=== PATIENT | male | born 1945 | race Caucasian/White ===

== ENCOUNTER 2017-05-01 09:14 | Outpatient (CLI) | payer MEDICARE | END 2017-05-01 09:15 | disposition critical access hospital (66) | LOC: EMS 09:14 | PROVIDERS: ATTEND Surgery | DX: R53.1 Weakness (principal); R06.00 Dyspnea, unspecified | CPT/HCPCS: A0425; A0429 ==

== ENCOUNTER 2017-05-01 09:21 | Inpatient (IN) | payer MEDICARE ==
[2017-05-01] MEDS ORDERED: IPRATROPIUM/ALBUTEROL 3 ML NEB INH STA (09:33)
[2017-05-01] MEDS ORDERED: SODIUM CHLORIDE 0.9% 1,000 ML IV ONE (09:33)
--- NOTE | 2017-05-01 09:40 | ED Physician Documentation ---
History of Present Illness - Stated complaint Stated Complaint: SOA/WEAK - Chief complaint Chief Complaint: Neuro - History obtained from History obtained from: Patient, EMS - Additonal information Additional information: The patient is a 71-year-old male with a history of COPD, who presents via ambulance complaining of generalized weakness. His weakness has been progressing for the past week. He reports associated thirst and shortness of breath. He reports "little cough," with slight sputum production. He denies fever, chest pain, or abdominal pain. He denies nausea, vomiting, or diarrhea. He reports occasional headache but currently does not have headache. He denies history of similar symptoms in the past. Past medical history is significant for COPD. He does not take any inhaler therapy, and is not on home oxygen. He is 2 weeks status post left hand surgery for Dupuytren's contracture at [facility]. Social history is significant for cigarette smoking. Review of Systems Constitutional: reports: Fatigue. denies: Fever Ears: denies: Tinnitus/ringing Nose: denies: Congestion Throat: denies: Sore throat Cardiac: denies: Chest pain / pressure, Palpitations Respiratory: reports: Dyspnea, Cough (Slight) GI: denies: Abdominal Pain, Nausea, Vomiting, Diarrhea : denies: Dysuria Skin: denies: Rash Musculoskeletal: denies: Neck pain, Extremity pain, Extremity swelling Neurologic: reports: Generalized weakness. 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 - Present Medications Home Medications: Ambulatory Orders Medication Instructions Recorded Confirmed Atenolol 50 mg PO 0800 05/01/17 05/01/17 Didanosine 250 mg PO 0800 05/01/17 05/01/17 Efavirenz [Sustiva] 600 mg PO 0800 05/01/17 05/01/17 Emtricitabine/Tenofov Alafenam 1 tab PO 0800 05/01/17 05/01/17 [Descovy 200-25 mg Tablet] - Allergies Allergies/Adverse Reactions: Allergies Allergy/AdvReac Type Severity Reaction Status Date / Time No Known Drug Allergies Allergy Verified 05/01/17 09:26 PD ED PE NORMAL - Vitals Vital signs reviewed: Yes (Systolic hypertension, and low pulse oximetry on room air.) - General General: Alert and oriented X 3, Well developed/nourished, Other (Nicotine odor. ) - HEENT HEENT: Atraumatic, EOMI, Moist mucous membranes, Pharynx benign - Neck Neck: Supple, no meningeal sign, No adenopathy, No JVD - Cardiac Cardiac: RRR, No murmur - Respiratory Respiratory: Other (Coarse breath sounds bilaterally, with inspiratory and expiratory crackles.) - Abdomen Abdomen: Soft, Non tender - Back Back: No CVA TTP - Derm Derm: No rash - Extremities Extremities: No edema, No calf tenderness / cord, Other (Wound dressing and splint on left hand.) - Neuro Neuro: Alert and oriented X 3, No motor deficit, Other (Decreased sensation fingers left hand.) Results - Vitals Vitals: Vital Signs - 24 hr 05/01/17 05/01/17 05/01/17 09:20 09:48 10:00 Temperature 36.9 C Heart Rate 82 90 88 Respiratory 18 25 H 26 H Rate Blood Pressure 161/85 H 143/88 H O2 Saturation 89 L 91 L 05/01/17 05/01/17 05/01/17 10:40 11:00 11:30 Temperature Heart Rate 88 82 102 H Respiratory 22 24 26 H Rate Blood Pressure 144/86 H 137/76 H 144/81 H O2 Saturation 92 89 L 89 L 05/01/17 11:57 Temperature Heart Rate 94 Respiratory 24 Rate Blood Pressure O2 Saturation Oxygen O2 Source Nasal cannula Oxygen Flow Rate 2 - EKG (time done) 09:35 Rate: Rate (enter#) (97) Rhythm: NSR Bussey: Normal Intervals: Normal NV, Prolonged QT QRS: Normal Computer interpretation: Agree with computer - Labs Labs: Laboratory Tests 05/01/17 05/01/17 05/01/17 09:54 09:54 09:54 WBC 21.2 H RBC 4.81 Hgb 15.5 Hct 45.8 MCV 95.2 H MCH 32.2 H MCHC 33.8 RDW 13.4 Plt Count 525 H MPV 7.1 L Neut # 18.1 H Lymph # 1.8 Dodge # 1.1 H Eos # 0.1 Baso # 0.2 H Absolute Nucleated RBC 0.01 Nucleated RBC % 0.0 Manual Slide Review Indicated WBC Morphology NORMAL APPEARANCE RBC Morph Micro Appear 1+ MACROCYTOSIS D-Dimer Bld Gas Analysis Time Sample Site ABG pH ABG pCO2 ABG pO2 ABG HCO3 ABG Total CO2 ABG O2 Saturation ABG Base Excess Luis Test O2 Delivery Device O2 Liters/Min Sodium 140 Potassium 4.2 Chloride 101 Carbon Dioxide 26 Anion Gap 13.0 BUN 19 Creatinine 0.9 Estimated GFR (MDRD) 83 L Glucose 103 H Lactic Acid Calcium 9.1 Total Bilirubin 0.6 AST 21 ALT 14 Alkaline Phosphatase 43 Troponin I < 0.04 B-Natriuretic Peptide Total Protein 8.2 Albumin 3.8 Globulin 4.4 H Albumin/Globulin Ratio 0.9 L Lipase 35 05/01/17 05/01/17 05/01/17 09:54 09:54 09:54 WBC RBC Hgb Hct MCV MCH MCHC RDW Plt Count MPV Neut # Lymph # Dodge # Eos # Baso # Absolute Nucleated RBC Nucleated RBC % Manual Slide Review WBC Morphology RBC Morph Micro Appear D-Dimer 262.2 H Bld Gas Analysis Time Sample Site ABG pH ABG pCO2 ABG pO2 ABG HCO3 ABG Total CO2 ABG O2 Saturation ABG Base Excess Luis Test O2 Delivery Device O2 Liters/Min Sodium Potassium Chloride Carbon Dioxide Anion Gap BUN Creatinine Estimated GFR (MDRD) Glucose Lactic Acid 1.2 Calcium Total Bilirubin AST ALT Alkaline Phosphatase Troponin I B-Natriuretic Peptide 122 H Total Protein Albumin Globulin Albumin/Globulin Ratio Lipase 05/01/17 11:50 WBC RBC Hgb Hct MCV MCH MCHC RDW Plt Count MPV Neut # Lymph # Dodge # Eos # Baso # Absolute Nucleated RBC Nucleated RBC % Manual Slide Review WBC Morphology RBC Morph Micro Appear D-Dimer Bld Gas Analysis Time 1200 Sample Site RIGHT RADIAL ABG pH 7.39 ABG pCO2 46 H ABG pO2 56 L ABG HCO3 27.2 H ABG Total CO2 28.6 ABG O2 Saturation 90 L ABG Base Excess 1.7 Luis Test POSITIVE O2 Delivery Device NASAL CANNULA O2 Liters/Min 3.00 Sodium Potassium Chloride Carbon Dioxide Anion Gap BUN Creatinine Estimated GFR (MDRD) Glucose Lactic Acid Calcium Total Bilirubin AST ALT Alkaline Phosphatase Troponin I B-Natriuretic Peptide Total Protein Albumin Globulin Albumin/Globulin Ratio Lipase - Rads (name of study) CXR Radiology: Prelim report reviewed, EMP read contemporaneously, See rad report ( Left midlung and bilateral lower lobe opacities; no vascular congestion; small pleural effusions; 10 mm nodular density projected over right upper lung. Recommend chest CT after acute symptoms resolve.) PD MEDICAL DECISION MAKING - ED course Complexity details: reviewed results, re-evaluated patient, considered differential, d/w patient, d/w internal control consultant ED course: The patient's presentation is most consistent with pneumonia. His chest x-ray reveals left mid lung and bilateral lower lobe opacities, consistent with pneumonia. His white blood cell count is 21,000. His presentation does not suggest congestive heart failure. He has no ischemic abnormalities on EKG, and his BNP is normal, as is his troponin. I doubt pulmonary embolus with a d- dimer of 262. His pulse oximetry is low at 89% on room air, and he has only slight improvement after supplemental oxygen at 2 L by nasal cannula. It improves to 91% on 3 L supplemental oxygen. Arterial blood gas on 3 L supplemental oxygen reveals hypoxemia, with a PO2 of 56.1. His pH is 7.39, PCO2 is 45.7, and bicarb is 27.2. Treatment in the emergency department included administration of DuoNeb nebulizer, followed by Xopenex nebulizer. Ceftriaxone 1 g and Zithromax 500 mg were administered IV. Sputum sample was collected by Respiratory Therapist, and sputum Gram Stain, c & s was ordered. I discussed his condition with Dr. Rosa who accepts him for further evaluation and treatment. Departure - Departure Disposition: 66 [facility] DC/Xfer Clinical Impression: Hypoxemia Pneumonia Qualifiers: Pneumonia type: due to unspecified organism Laterality: bilateral Lung location : lower lobe of lung Qualified Code(s): J18.9 - Pneumonia, unspecified organism Condition: Stable Discharge Date/Time: 05/01/17 12:50
[2017-05-01 10:02] LABS: BASOPHILS # (AUTO) 0.2 10^3/uL (0.0-0.1); EOSINOPHILS # (AUTO) 0.1 10^3/uL (0.0-0.7); EOSINOPHILS % (AUTO) 0.4 %; HGB - HEMOGLOBIN 15.5 g/dL (14.0-18.0); LYMPHOCYTES # (AUTO) 1.8 10^3/uL (1.5-3.5); LYMPHOCYTES % (AUTO) 8.5 %; MEAN CORPUSCULAR HEMOGLOBIN 32.2 pg (27.0-31.0); MEAN CORPUSCULAR HGB CONC 33.8 g/dL (32.0-36.0); MEAN CORPUSCULAR VOLUME 95.2 fL (80.0-94.0); MEAN PLATELET VOLUME 7.1 fL (7.4-11.4); MONOCYTES # (AUTO) 1.1 10^3/uL (0.0-1.0); NEUTROPHILS # (AUTO) 18.1 10^3/uL (1.5-6.6); NEUTROPHILS % (AUTO) 85.1 %; PLT - PLATELET COUNT 525 10^3/uL (130-450); RED BLOOD COUNT 4.81 10^6/uL (4.70-6.10); RED CELL DISTRIBUTION WIDTH 13.4 % (12.0-15.0); WHITE BLOOD COUNT 21.2 x10^3/uL (4.8-10.8)
[2017-05-01 10:14] LABS: ALBUMIN 3.8 g/dL (3.2-5.5); ALBUMIN/GLOBULIN RATIO 0.9 (1.0-2.2); BILIRUBIN,TOTAL 0.6 mg/dL (0.2-1.0); CALCIUM 9.1 mg/dL (8.5-10.3); CREATININE 0.9 mg/dL (0.6-1.2); TOTAL PROTEIN 8.2 g/dL (6.7-8.2)
--- NOTE | 2017-05-01 10:46 | XRAY Report ---
EXAM: CHEST RADIOGRAPHY EXAM DATE: 05/01/2017 10:28 AM. CLINICAL HISTORY: Dyspnea; coarse breath sounds. COMPARISON: None. TECHNIQUE: 2 views. FINDINGS: Lungs/Pleura: Left mid and bilateral lower lung opacities. Hyperinflation. Small pleural effusions. N odular 10 mm density projects over the right upper lung along the right anterior second rib. Mediastinum: Heart size is normal. Aorta is tortuous. Other: Degenerative changes of the thoracic spine. Dextroscoliosis of the thoracic spine and both saji ulders. IMPRESSION: 1. Left midlung and bilateral lower lung opacities possibly areas of consolidation. 2. No vascular congestion. 3. Small pleural effusions. 4. 10 mm nodular density projected over the right upper lung, confluence of rib and vessel versus und erlying parenchymal nodule. Once patient's acute clinical symptoms have improved, follow chest CT rec ommended. CHERYL Referring Provider Line: [phone] SITE ID: [id number]
[2017-05-01] MEDS ORDERED: cefTRIAXone 1 GM in SODIUM CHLORIDE 0.9% MINIBAG 100 ML IV STA (11:12)
[2017-05-01] MEDS ORDERED: AZITHROMYCIN INJ 500 MG in SODIUM CHLORIDE 0.9% 250 ML IV STA (11:12)
[2017-05-01] MEDS ORDERED: LEVALBUTEROL 1.25 MG/3 ML NEB INH STA (11:34)
[2017-05-01] MEDS ORDERED: SODIUM CHLORIDE FLUSH 0.9% 10 ML SYRINGE IVP PRN (11:59)
[2017-05-01 12:04] LABS: ABG HCO3 27.2 mmol/L (22.0-26.0); ABG PCO2 46 mmHg (34-45); ABG PH 7.39 (7.35-7.45); ABG PO2 56 mmHg (80-100); ABG TCO2 28.6 MMOL/L (21.0-29.0)
[2017-05-01 12:05] LABS: ABG BASE EXCESS 1.7 mmol/L (-2.0-3.0); ABG OXYGEN SATURATION 90 % (94-98); ALLEN TEST POSITIVE
--- NOTE | 2017-05-01 12:15 | HISTORY & PHYSICAL EXAMINATION ---
Chief Complaint - Chief Complaint Chief Complaint: shortness of breath, cough History of Present Illness - Admitted From Admitted From:: ED - History Obtained From Records Reviewed: yes History obtained from: chart review, patient Exam Limitations: none - History of Present Illness HPI Comment/Other: Dre Estrada an ill appearing yellow mustached 71 year old white male with a past medical history of COPD, s/p Dupuytren's contracture repair at ~2 weeks ago, HIV, tobacco dependence, alcohol dependence-in remission, BPH, and PTSD related to [place] . About one week ago the patient noticed that he could no longer walk his usual distance to the store in his neighborhood, followed by profound weakness and anorexia. Once in the ED he was noted to be hypoxic and required oxygen, have an elevated WBC count of 21.2, he was checked for a PE which was negative per imaging and was negative for cardiac etiologies. The patient admits to a mild cough with small amounts of sputum production, but denies fever, chills, nausea, vomiting or diarrhea. He continues to smoke greater than 1 ppd, but has recently cut back to just 3/4 ppd. He denies home oxygen use, inhalers, or having a soil chemist. He will be admitted to inpatient for treatment of bilateral pneumonia, management of COPD and encouragement to consider smoking cessation. 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 - Past Surgical History General: reports: Appendectomy, Other (inguinal hernia repair-right) Derm: reports: Skin cancer surgery Other past surgical history: 2 weeks status post left hand surgery for Dupuytren 's contracture. - Family & Social History Family History: Mother: (Sister of pancreatic CA.), Alzheimer's Disease (Mother of Alzheimers), Father: , Cancer (father of pancreatic/liver CA.), Sister: , Brother: Family History Comment/Other: He remains with 3 living sisters who are thought to be alive and well, although are not in touch with him. Living arrangement: At home Living Situation: Alone Social History Notes: Patient was in the [place] war and suffers from PTSD and consequently abused alcohol for much of his adult life. He continues to use tobacco, but denies illicit drug use. He had a life long kerr partner who ~6 years ago. He has no biological children and contracted HIV 35- 40 years ago and this has been managed well. 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 [place] He no longer has pets and his cat . He wishes for all resuscitation measures with the exception of intubation. So his code status is DNI. - Substance History Use: Uses substance without health or social issues: Tobacco Use Issues: Anxiety Disorder Abuse: Recurrent use of substance despite neg consequences: NONE Dependence: Experiences withdrawal or developed tolerances: Tobacco Dependence Issues: Anxiety Disorder Tobacco Details: Cigarettes (Has smoked since age 29 and presently smokes greater than 1 ppd.) - POLST Patient has POLST: No POLST Status: Limited Interventions (No intubation) Meds/Allgy - Home Medications Home Medications: Ambulatory Orders Medication Instructions Recorded Confirmed Atenolol 50 mg PO 0800 05/01/17 05/01/17 Didanosine 250 mg PO 0800 05/01/17 05/01/17 Efavirenz [Sustiva] 600 mg PO 0800 05/01/17 05/01/17 Emtricitabine/Tenofov Alafenam 1 tab PO 0800 05/01/17 05/01/17 [Descovy 200-25 mg Tablet] - Allergies Allergies/Adverse Reactions: Allergies Allergy/AdvReac Type Severity Reaction Status Date / Time No Known Drug Allergies Allergy Verified 05/01/17 09:26 Review of Systems - Constitutional Constitutional: reports: Fatigue, Weakness - Eyes Eyes: reports: Vision loss - Ears, Nose & Throat Ears, Nose & Throat: reports: Hearing loss, Nasal congestion, Mouth lesions ( thrush appearing, white film over tongue.), Dental decay - Cardiovascular Cariovascular: reports: Decr. exercise tolerance - Respiratory Respiratory: reports: Cough, Sputum production, Wheezing, SOB with exertion - Gastrointestinal Gastrointestinal: reports: Constipation, Poor appetite - Genitourinary Genitourinary: reports: Frequency, Nocturia - Musculoskeletal Musculoskeletal: reports: Limited range of motion, Muscle weakness, Joint pain - Integumentary Integumentary: reports: Dryness - Neurological Neurological: reports: General weakness - All Other Systems All Other Systems: reports: Reviewed and negative Exam - Vital Signs Reviewed Vital Signs: Yes Vital Signs: Vital Signs x48h Temp Pulse Resp BP Pulse Ox 05/01/17 11:57 94 24 05/01/17 09:48 90 25 H 05/01/17 09:20 36.9 C 82 18 161/85 H 89 L - Physical Exam General Appearance: positive: Alert, Moderate distress, Anxious Eyes Bilateral: positive: Normal inspection ENT: positive: ENT inspection nml, Pharynx nml, Dry mucous membranes Neck: positive: Nml inspection, Thyroid nml, No JVD, Trachea midline Respiratory: positive: Chest non-tender, Wheezes, Rhonchi Peripheral Pulses: positive: 1+ Abdomen: positive: Non-tender, Nml bowel sounds Back: positive: Nml inspection Skin: positive: No rash, Warm, Dry Extremities: positive: Non-tender, Full ROM, Nml appearance, No pedal edema Neurologic/Psychiatric: positive: Oriented x3, CN's nml (2-12), Motor nml, Sensation nml, Depressed mood/affect Reflexes: Bicep (R): 2+, Bicep (L): 1+ Conclusion/Plan - Problem List (1) Bilateral pneumonia Conclusion/Plan: A PE CT was completed and the patient is noted to have bilateral PNA. Plan: Obtain sputum sample and treat with IV antibiotics. (2) COPD (chronic obstructive pulmonary disease) Conclusion/Plan: Patient has been a smoker since age 29 and during his exam he is noted to have nicotine stained facial hair, and nicotine stained fingers. Plan: Offer nicotine patch, start nebs, antibiotics and continue oxygen. Qualifiers: COPD type: COPD with acute lower respiratory infection Qualified Code(s): J44.0 - Chronic obstructive pulmonary disease with acute lower respiratory infection (3) HIV (human immunodeficiency virus infection) Conclusion/Plan: Patient admits to infection for the past 35-40 years and this is well managed and is on sustiva, didanosine and emtricitabine/tenofovir. Patient states that his next appointment is in July. Plan: Continue home medications, patient supplied. (4) Tobacco dependence Conclusion/Plan: Patient has been a smoker since age 29 and during his exam he is noted to have nicotine stained facial hair, and nicotine stained fingers. Plan: Offer nicotine patch, start nebs, antibiotics and continue oxygen. - Lab Results Lab results reviewed: Yes Fish Bones: 05/01/17 09:54 05/01/17 09:54 - Diagnostic Imaging Results Diagnostic Imaging Results: positive: Prelim report reviewed, Final report reviewed - EKG Results EKG Interpreted Independently: Yes Core Measures - Anticipated LOS I expect patient to be DC'd or transferred within 96 hours.: Yes - DVT/VTE - Prophylaxis VTE/DVT Device ordered at admit?: Yes VTE/DVT Prophylaxis med ordered at admit?: Yes - Stroke - Rehab Assessment Rehab services assessment to be ordered?: Yes - AMI - Statin at Admit Aspirin Prescribed on Admit: Yes
[2017-05-01] MEDS: SODIUM CHLORIDE 0.9% 1,000 ML IV SCH ×2 (13:12→16:48)
[2017-05-01] MEDS: SODIUM CHLORIDE FLUSH 0.9% 10 ML SYRINGE IVP SCH ×2 (13:13→23:45)
[2017-05-01] MEDS ORDERED: IPRATROPIUM/ALBUTEROL 3 ML NEB INH PRN (15:39)
[2017-05-01] MEDS: IPRATROPIUM/ALBUTEROL 3 ML NEB INH SCH ×2 (16:07→20:00)
[2017-05-01] MEDS: methylPREDNISolone SUCCINATE 40 MG/ML VIAL IVP SCH ×2 (17:08→22:48)
[2017-05-01] MEDS: guaiFENesin 600 MG TABLET PO SCH (17:08)
[2017-05-01] MEDS: PIPERACILLIN/TAZOBACTAM 3.375 GM in SODIUM CHLORIDE 0.9% MINIBAG 100 ML IV SCH (22:48)
[2017-05-02] MEDS: PIPERACILLIN/TAZOBACTAM 3.375 GM in SODIUM CHLORIDE 0.9% MINIBAG 100 ML IV SCH ×2 (02:47→08:29)
[2017-05-02] MEDS: SODIUM CHLORIDE 0.9% 1,000 ML IV SCH ×2 (03:05→18:44)
[2017-05-02] MEDS: SODIUM CHLORIDE FLUSH 0.9% 10 ML SYRINGE IVP SCH ×2 (06:01→18:14)
[2017-05-02] MEDS: methylPREDNISolone SUCCINATE 40 MG/ML VIAL IVP SCH ×3 (06:01→21:42)
[2017-05-02 06:05] LABS: BASOPHILS # (AUTO) 0.1 10^3/uL (0.0-0.1); BASOPHILS % (AUTO) 0.4 %; HGB - HEMOGLOBIN 13.4 g/dL (14.0-18.0); LYMPHOCYTES # (AUTO) 1.3 10^3/uL (1.5-3.5); LYMPHOCYTES % (AUTO) 5.6 %; MEAN CORPUSCULAR HEMOGLOBIN 31.5 pg (27.0-31.0); MEAN CORPUSCULAR HGB CONC 32.7 g/dL (32.0-36.0); MEAN CORPUSCULAR VOLUME 96.6 fL (80.0-94.0); MEAN PLATELET VOLUME 6.9 fL (7.4-11.4); MONOCYTES # (AUTO) 0.5 10^3/uL (0.0-1.0); MONOCYTES % (AUTO) 2.2 %; NEUTROPHILS # (AUTO) 21.1 10^3/uL (1.5-6.6); NEUTROPHILS % (AUTO) 91.8 %; PLT - PLATELET COUNT 501 10^3/uL (130-450); RED BLOOD COUNT 4.23 10^6/uL (4.70-6.10); RED CELL DISTRIBUTION WIDTH 13.9 % (12.0-15.0)
[2017-05-02 06:19] LABS: ALBUMIN 3.1 g/dL (3.2-5.5); ALBUMIN/GLOBULIN RATIO 0.8 (1.0-2.2); BILIRUBIN,TOTAL 0.6 mg/dL (0.2-1.0); CALCIUM 8.2 mg/dL (8.5-10.3); CREATININE 0.9 mg/dL (0.6-1.2); MAGNESIUM 2.1 mg/dL (1.7-2.8); TOTAL PROTEIN 7.2 g/dL (6.7-8.2)
[2017-05-02 06:29] LABS: PLATELET ESTIMATE, MANUAL INCREASED (>450,000) (NORMAL); PLATELET MORPHOLOGY NORMAL APPEARANCE (NORMAL); RBC MORPHOLOGY (MULTIPLE) NORMAL APPEARANCE (NORMAL)
[2017-05-02] MEDS: IPRATROPIUM/ALBUTEROL 3 ML NEB INH SCH ×4 (07:39→20:01)
[2017-05-02] MEDS: DIDANOSINE PO SCH (08:29)
[2017-05-02] MEDS: Emtricitabine/Tenofov Alafenam [Descovy 200-25 Mg Tablet] 1 TAB PO SCH (08:29)
[2017-05-02] MEDS: EFAVIRENZ 600 MG PO SCH (08:29)
[2017-05-02] MEDS: ATENOLOL 25 MG TABLET PO SCH (08:30)
[2017-05-02] MEDS: NYSTATIN 500000 UNITS/5 ML UDC PO SCH ×4 (08:30→21:42)
[2017-05-02] MEDS: guaiFENesin 600 MG TABLET PO SCH ×2 (08:30→21:42)
[2017-05-02] MEDS: POLYETHYLENE GLYCOL 3350 17 GM PACKET PO SCH (09:57)
--- NOTE | 2017-05-02 10:26 | PROVIDER PROGRESS NOTE ---
Subjective - Prog Note Date Prog Note Date: 05/02/17 Prog Note Time: 10:15 - Subjective Pt reports feeling: Improved Subjective: Pt is breathing easier, says he still gets winded with ambulation. Slept well, also says his appetite is much improved. Denies fevers or chills. Current Medications - Current Medications Current Medications: duoneb, tenormin, guaifenessin, nystatin, didanosine, sustiva, Descovy, Piperacillin/tazobactam, miralax,sodium chloride Objective - Vital Signs/Intake & Output Reviewed Vital Signs: Yes Vital Signs: Vital Signs x48h Temp Pulse Pulse Resp BP Pulse Ox 05/02/17 07:46 36.6 C 79 18 114/67 95 05/02/17 07:39 75 24 05/02/17 05:00 36.7 C 80 16 133/68 H 94 Intake & Output: Intake & Output 04/29/17 04/30/17 05/01/17 05/02/17 23:59 23:59 23:59 23:59 Intake Total 2122.5 1400 Output Total 100 300 Balance 2022.5 1100 - Objective General Appearance: positive: No acute distress, Alert, Mild distress Eyes Bilateral: positive: Normal inspection, PERRL, EOMI, No lid inflammation, Conjunctivae nml, No scleral icterus ENT: positive: ENT inspection nml, Pharynx nml, No signs of dehydration Neck: positive: Nml inspection, Thyroid nml, No JVD, Trachea midline. negative : Thyromegaly Respiratory: positive: Chest non-tender, No respiratory distress, Breath sounds nml Cardiovascular: positive: Regular rate & rhythm, No murmur, No gallop, Irregularly irregular, Extrasystoles, Tachycardia Abdomen: positive: Non-tender, No organomegaly, Nml bowel sounds, No distention. negative: Guarding, Rebound Back: positive: Nml inspection. negative: CVA tenderness (R), CVA tenderness (L ) Skin: positive: Color nml, No rash, Dry. negative: Cyanosis Extremities: positive: Non-tender, Full ROM, Nml appearance, No pedal edema Neurologic/Psychiatric: positive: Oriented x3, CN's nml (2-12), Motor nml, Sensation nml, Mood/affect nml - Lab Results Fish Bones: 05/02/17 05:52 05/02/17 05:52 Other Labs: Lab Results x24hrs 05/02/17 05/02/17 Range/Units 05:52 05:52 WBC 23.0 H (4.8-10.8) x10^3/uL RBC 4.23 L (4.70-6.10) 10^6/uL Hgb 13.4 L (14.0-18.0) g/dL Hct 40.9 L (42.0-52.0) % MCV 96.6 H (80.0-94.0) fL MCH 31.5 H (27.0-31.0) pg MCHC 32.7 (32.0-36.0) g/dL RDW 13.9 (12.0-15.0) % Plt Count 501 H (130-450) 10^3/uL MPV 6.9 L (7.4-11.4) fL Neut # 21.1 H (1.5-6.6) 10^3/uL Lymph # 1.3 L (1.5-3.5) 10^3/uL [place] # 0.5 (0.0-1.0) 10^3/uL Eos # 0.0 (0.0-0.7) 10^3/uL Baso # 0.1 (0.0-0.1) 10^3/uL Absolute Nucleated RBC 0.00 x10^3/uL Nucleated RBC % 0.0 /100WBC Manual Slide Review Indicated Platelet Estimate INCREASED (>450,000) (NORMAL) Platelet Morphology NORMAL APPEARANCE (NORMAL) RBC Morph Micro Appear NORMAL APPEARANCE (NORMAL) Sodium 141 (135-145) mmol/L Potassium 4.6 (3.5-5.0) mmol/L Chloride 106 (101-111) mmol/L Carbon Dioxide 27 (21-32) mmol/L Anion Gap 8.0 (6-13) BUN 16 (6-20) mg/dL Creatinine 0.9 (0.6-1.2) mg/dL Estimated GFR (MDRD) 83 L (>89) Glucose 147 H (70-100) mg/dL Calcium 8.2 L (8.5-10.3) mg/dL Magnesium 2.1 (1.7-2.8) mg/dL Total Bilirubin 0.6 (0.2-1.0) mg/dL AST 17 (10-42) IU/L ALT 12 (10-60) IU/L Alkaline Phosphatase 36 L (42-121) IU/L Total Protein 7.2 (6.7-8.2) g/dL Albumin 3.1 L (3.2-5.5) g/dL Globulin 4.1 (2.1-4.2) g/dL Albumin/Globulin Ratio 0.8 L (1.0-2.2) - Diagnostic Imaging Diagnostic Imaging Results: positive: Final report reviewed Diagnostic Imaging Comments: EXAM: CHEST RADIOGRAPHY EXAM DATE: 05/01/2017 10:28 AM. CLINICAL HISTORY: Dyspnea; coarse breath sounds. COMPARISON: None. TECHNIQUE: 2 views. FINDINGS: Lungs/Pleura: Left mid and bilateral lower lung opacities. Hyperinflation. Small pleural effusions. Nodular 10 mm density projects over the right upper lung along the right anterior second rib. Mediastinum: Heart size is normal. Aorta is tortuous. Other: Degenerative changes of the thoracic spine. Dextroscoliosis of the thoracic spine and both shoulders. IMPRESSION: 1. Left midlung and bilateral lower lung opacities possibly areas of consolidation. 2. No vascular congestion. 3. Small pleural effusions. 4. 10 mm nodular density projected over the right upper lung, confluence of rib and vessel versus underlying parenchymal nodule. Once patient's acute clinical symptoms have improved, follow chest CT recommended. Assessment/Plan - Problem List (1) Bilateral pneumonia Impression: The patient was found to have bilateral pneumonia on admission, with also a 10 cm nodular density. Pt has had recurrent pneumonias. Will get CT angiogram, continue neb treatments, antibiotics, supplemental oxygen, bronchodilators. (2) COPD (chronic obstructive pulmonary disease) Impression: We will continue supplemental oxygen, duonebs, and will treat underlying pneumonia Qualifiers: COPD type: COPD with acute lower respiratory infection Qualified Code(s): J44.0 - Chronic obstructive pulmonary disease with acute lower respiratory infection (3) HIV (human immunodeficiency virus infection) Impression: Patient admits to infection for the past 35-40 years and this is well managed and is on sustiva, didanosine and emtricitabine/tenofovir. Patient states that his next appointment is in July. (4) Pneumonia Qualifiers: Pneumonia type: due to unspecified organism Laterality: bilateral Lung location: lower lobe of lung Qualified Code(s): J18.9 - Pneumonia, unspecified organism (5) Tobacco dependence Impression: Patient has been a smoker since age 29 and during his exam he is noted to have nicotine stained facial hair, and nicotine stained fingers. Plan: Offer nicotine patch, start nebs, antibiotics and continue oxygen.
[2017-05-02] MEDS ORDERED: IOPAMIDOL-300 100 ML VIAL ONE (10:57)
[2017-05-02] MEDS ORDERED: IOPAMIDOL-300 100 ML VIAL IVP ONE (11:51)
[2017-05-02] MEDS ORDERED: cefTRIAXone 2 GM in SODIUM CHLORIDE 0.9% MINIBAG 100 ML IV SCH (12:00)
--- NOTE | 2017-05-02 12:37 | CT Report ---
CT ANGIOGRAM CHEST: 05/02/2017 CLINICAL INDICATION: Shortness of breath, recent surgery, question pulmonary embolus. TECHNIQUE: Axial CT images of the chest were obtained with 80 mL Isovue 300 intravenously, according to pulmonary embolus protocol. Sagittal and coronal 3-D reconstructions were performed. FINDINGS: The heart and great vessels appear unremarkable. There is no evidence of pulmonary embolus. Mild right hilar adenopathy is present, and there is right greater than left basilar consolidation. No effusion or pneumothorax is present. Osseous structures demonstrate degenerative changes. Limited evaluation of upper abdominal structures demonstrates normal adrenal glands. IMPRESSION: RIGHT GREATER THAN LEFT BASILAR INFILTRATES. NO EVIDENCE OF PULMONARY EMBOLUS. In accordance with CT protocol optimization, one or more of the following dose reduction techniques were utilized for this exam: automated exposure control, adjustment of mA and/or KV based on patient size, or use of iterative reconstructive technique. TD: 05/02/2017 12:36
[2017-05-02] MEDS ORDERED: AZITHROMYCIN INJ 500 MG in SODIUM CHLORIDE 0.9% 250 ML IV SCH (13:00)
[2017-05-03] MEDS: SODIUM CHLORIDE FLUSH 0.9% 10 ML SYRINGE IVP SCH ×3 (01:25→16:21)
[2017-05-03] MEDS ORDERED: PIPERACILLIN/TAZOBACTAM 3.375 GM in SODIUM CHLORIDE 0.9% MINIBAG 100 ML IV SCH (05:00)
[2017-05-03 05:21] LABS: BASOPHILS # (AUTO) 0.2 10^3/uL (0.0-0.1); BASOPHILS % (AUTO) 0.9 %; HGB - HEMOGLOBIN 11.9 g/dL (14.0-18.0); LYMPHOCYTES # (AUTO) 1.4 10^3/uL (1.5-3.5); LYMPHOCYTES % (AUTO) 6.3 %; MEAN CORPUSCULAR HEMOGLOBIN 31.5 pg (27.0-31.0); MEAN CORPUSCULAR VOLUME 98.4 fL (80.0-94.0); MEAN PLATELET VOLUME 7.3 fL (7.4-11.4); MONOCYTES # (AUTO) 0.9 10^3/uL (0.0-1.0); MONOCYTES % (AUTO) 3.8 %; NEUTROPHILS # (AUTO) 20.2 10^3/uL (1.5-6.6); PLT - PLATELET COUNT 472 10^3/uL (130-450); RED BLOOD COUNT 3.78 10^6/uL (4.70-6.10); RED CELL DISTRIBUTION WIDTH 13.8 % (12.0-15.0); WHITE BLOOD COUNT 22.7 x10^3/uL (4.8-10.8)
[2017-05-03 05:30] LABS: ALBUMIN 2.8 g/dL (3.2-5.5); ALBUMIN/GLOBULIN RATIO 0.8 (1.0-2.2); BILIRUBIN,TOTAL 0.2 mg/dL (0.2-1.0); CALCIUM 8.3 mg/dL (8.5-10.3); CREATININE 0.8 mg/dL (0.6-1.2); MAGNESIUM 2.3 mg/dL (1.7-2.8); TOTAL PROTEIN 6.5 g/dL (6.7-8.2)
[2017-05-03] MEDS: methylPREDNISolone SUCCINATE 40 MG/ML VIAL IVP SCH ×3 (05:51→22:10)
[2017-05-03] MEDS: SODIUM CHLORIDE 0.9% 1,000 ML IV SCH ×2 (05:51→14:25)
[2017-05-03] MEDS: levoFLOXacin 750 MG/150 ML 750 MG/150 ML BAG IV SCH (06:47)
--- NOTE | 2017-05-03 06:48 | PROVIDER PROGRESS NOTE ---
Subjective - Prog Note Date Prog Note Date: 05/03/17 Prog Note Time: 06:46 - Subjective Pt reports feeling: Improved Subjective: he's improved but still really weak. at home he could barely get out of a chair to get to kitchen or bathroom. he's not that weak anymore but getting up is a considerable effort with rajan still present. he's on O2 here but doesn't use it at home. eating ok. he would like a stool softener to go home on. He was suppose to have had his stiches removed from his hand surgery last week but never got in. Can we remove them? no new pain, redness or swelling. Just time to get them out. Current Medications - Current Medications Current Medications: Active Medications Albuterol/Ipratropium (Duoneb) 3 ml INH Q4HR PRN PRN Reason: Wheezing Albuterol/Ipratropium (Duoneb) 3 ml INH RTQID [facility] Last Admin: 05/02/17 20:01 Dose: 3 ml Atenolol (Tenormin) 50 mg PO 0800 [facility] Last Admin: 05/02/17 08:30 Dose: 50 mg Guaifenesin (Mucinex) 600 mg PO BID [facility] Last Admin: 05/02/17 21:42 Dose: 600 mg Sodium Chloride (Normal Saline 0.9%) 1,000 mls @ 100 mls/hr IV .Q10H [facility] Last Admin: 05/03/17 05:51 Dose: 100 mls/hr Levofloxacin (Levaquin 750 Mg/150 Ml) 750 mg in 150 mls @ 100 mls/hr IV Q24H [facility] Piperacillin Sod/Tazobactam (Sod 3.375 gm/ Sodium Chloride) 100 mls @ 200 mls/ hr IV Q6H [facility] Last Admin: 05/03/17 05:50 Dose: 200 mls/hr Methylprednisolone (Solu-Medrol (40mg Vial)) 40 mg IVP TID [facility] Last Admin: 05/03/17 05:51 Dose: 40 mg Nystatin (Mycostatin) 5 ml PO QID [facility] Last Admin: 05/02/17 21:42 Dose: 5 ml Didanosine [ (Didanosine] 250 Mg) 1 each PO 0800 [facility] Last Admin: 05/02/17 08:29 Dose: 1 each Efavirenz [Sustiva] (600 Mg) 1 each PO 0800 [facility] Last Admin: 05/02/17 08:29 Dose: 1 each Emtricitabine/Tenofov Alafenam [ Descovy 200-25 Mg Tablet] 1 Tab 1 each PO 0800 [facility] Last Admin: 05/02/17 08:29 Dose: 1 each Polyethylene Glycol (Miralax) 17 gm PO DAILY [facility] Last Admin: 05/02/17 09:57 Dose: Not Given Sodium Chloride (Normal Saline Flush 0.9%) 10 ml IVP PRN PRN PRN Reason: NEEDED PER PROVIDER ORDERS Sodium Chloride (Normal Saline Flush 0.9%) 10 ml IVP 0100,0900,1700 [facility] Last Admin: 05/03/17 01:25 Dose: Not Given Atenolol 50 mg PO 0800 05/01/17 Didanosine 250 mg PO 0800 05/01/17 Efavirenz [Sustiva] 600 mg PO 0800 05/01/17 Emtricitabine/Tenofov Alafenam [Descovy 200-25 mg Tablet] 1 tab PO 0800 Objective - Vital Signs/Intake & Output Reviewed Vital Signs: Yes Vital Signs: Vital Signs x48h Temp Pulse Resp BP Pulse Ox 05/03/17 04:23 36.8 C 86 16 108/62 94 05/03/17 00:06 36.6 C 84 16 118/64 95 Intake & Output: Intake & Output 04/30/17 05/01/17 05/02/17 05/03/17 23:59 23:59 23:59 23:59 Intake Total 2122.5 3460.000 1100 Output Total 100 1075 550 Balance 2022.5 2385.000 550 - Objective General Appearance: positive: No acute distress, Alert Eyes Bilateral: positive: PERRL ENT: positive: Other (nasal tone of voice, still congested) Neck: positive: No JVD, Lymphadenopathy (L) (shotty). negative: Lymphadenopathy (R) (shotty), Stiff neck, Carotid bruit Respiratory: positive: Chest non-tender, No respiratory distress (comfortable taking to me in full sentences and no use of accessory muscles.), Wheezes, Rhonchi, Other (laughs and wheezes still). negative: Rales Cardiovascular: positive: Regular rate & rhythm, Systolic murmur. negative: Gallop/S4, Friction rub Abdomen: positive: Non-tender, No organomegaly, Nml bowel sounds, No distention Skin: positive: Warm, Dry Extremities: positive: No pedal edema Neurologic/Psychiatric: positive: Oriented x3, CN's nml (2-12), Motor nml, Weakness - Lab Results Fish Bones: 05/03/17 05:05 05/03/17 05:05 Other Labs: Lab Results x24hrs 05/03/17 05/03/17 Range/Units 05:05 05:05 WBC 22.7 H (4.8-10.8) x10^3/uL RBC 3.78 L (4.70-6.10) 10^6/uL Hgb 11.9 L (14.0-18.0) g/dL Hct 37.2 L (42.0-52.0) % MCV 98.4 H (80.0-94.0) fL MCH 31.5 H (27.0-31.0) pg MCHC 32.0 (32.0-36.0) g/dL RDW 13.8 (12.0-15.0) % Plt Count 472 H (130-450) 10^3/uL MPV 7.3 L (7.4-11.4) fL Manual Slide Review Indicated Sodium 141 (135-145) mmol/L Potassium 4.5 (3.5-5.0) mmol/L Chloride 110 (101-111) mmol/L Carbon Dioxide 27 (21-32) mmol/L Anion Gap 4.0 L (6-13) BUN 20 (6-20) mg/dL Creatinine 0.8 (0.6-1.2) mg/dL Estimated GFR (MDRD) 95 (>89) Glucose 136 H (70-100) mg/dL Calcium 8.3 L (8.5-10.3) mg/dL Magnesium 2.3 (1.7-2.8) mg/dL Total Bilirubin 0.2 (0.2-1.0) mg/dL AST 18 (10-42) IU/L ALT 14 (10-60) IU/L Alkaline Phosphatase 32 L (42-121) IU/L Total Protein 6.5 L (6.7-8.2) g/dL Albumin 2.8 L (3.2-5.5) g/dL Globulin 3.7 (2.1-4.2) g/dL Albumin/Globulin Ratio 0.8 L (1.0-2.2) Assessment/Plan - Problem List (1) Bilateral pneumonia Impression: The patient was found to have bilateral pneumonia on admission, with also a 10 cm nodular density. Pt has had recurrent pneumonias. CT angiogram does not show PE and he has left > right consolidation on lungs. Continue neb treatments , antibiotics, supplemental oxygen, bronchodilators. His sputum culture grew out GNR and he was changed from levaquin to rocephin and azithromycin yesterday. I have changed him back to levaquin and added zosyn. (2) COPD (chronic obstructive pulmonary disease) Impression: We will continue supplemental oxygen, duonebs, and will treat underlying pneumonia Qualifiers: COPD type: COPD with acute lower respiratory infection Qualified Code(s): J44.0 - Chronic obstructive pulmonary disease with acute lower respiratory infection (3) HIV (human immunodeficiency virus infection) Impression: Patient admits to infection for the past 35-40 years and this is well managed and is on sustiva, didanosine and emtricitabine/tenofovir. Patient states that his next appointment is in July. (4) Pneumonia Qualifiers: Pneumonia type: due to unspecified organism Laterality: bilateral Lung location: lower lobe of lung Qualified Code(s): J18.9 - Pneumonia, unspecified organism growing out GNR. ID and sensitivity pending. WBC still high at 21 to 23K without much improvement still on O2. Plan on another 2 days or so before considering dc. He wants to return to home only. He may need to go home on O2. Will have PT eval and tx today. (5) Tobacco dependence Impression: Patient has been a smoker since age 29 and during his exam he is noted to have nicotine stained facial hair, and nicotine stained fingers. Plan: Offer nicotine patch, start nebs, antibiotics and continue oxygen. (6) Constipation I'll make sure he has colace at dc. start some today.
[2017-05-03] MEDS: IPRATROPIUM/ALBUTEROL 3 ML NEB INH SCH ×4 (07:12→19:50)
[2017-05-03 07:39] LABS: PLATELET ESTIMATE, MANUAL INCREASED (>450,000) (NORMAL); PLATELET MORPHOLOGY NORMAL APPEARANCE (NORMAL); RBC MORPHOLOGY (MULTIPLE) NORMAL APPEARANCE (NORMAL)
[2017-05-03] MEDS: ATENOLOL 25 MG TABLET PO SCH (09:06)
[2017-05-03] MEDS: NYSTATIN 500000 UNITS/5 ML UDC PO SCH ×4 (09:06→20:26)
[2017-05-03] MEDS: guaiFENesin 600 MG TABLET PO SCH ×2 (09:07→20:26)
[2017-05-03] MEDS: DOCUSATE SODIUM 100 MG CAPSULE PO SCH (09:07)
[2017-05-03] MEDS: DIDANOSINE PO SCH (09:09)
[2017-05-03] MEDS: EFAVIRENZ 600 MG PO SCH (09:09)
[2017-05-03] MEDS: Emtricitabine/Tenofov Alafenam [Descovy 200-25 Mg Tablet] 1 TAB PO SCH (09:09)
[2017-05-03] MEDS: POLYETHYLENE GLYCOL 3350 17 GM PACKET PO SCH (09:10)
[2017-05-03] MEDS: PIPERACILLIN/TAZOBACTAM 4.5 GM in SODIUM CHLORIDE 0.9% MINIBAG 100 ML IV SCH ×3 (12:16→23:55)
[2017-05-04] MEDS: SODIUM CHLORIDE FLUSH 0.9% 10 ML SYRINGE IVP SCH ×3 (00:58→16:14)
[2017-05-04] MEDS: PIPERACILLIN/TAZOBACTAM 4.5 GM in SODIUM CHLORIDE 0.9% MINIBAG 100 ML IV SCH (05:31)
[2017-05-04] MEDS: methylPREDNISolone SUCCINATE 40 MG/ML VIAL IVP SCH (06:13)
[2017-05-04] MEDS: levoFLOXacin 750 MG/150 ML 750 MG/150 ML BAG IV SCH (06:13)
[2017-05-04 06:19] LABS: BASOPHILS # (AUTO) 0.1 10^3/uL (0.0-0.1); BASOPHILS % (AUTO) 0.5 %; HGB - HEMOGLOBIN 11.9 g/dL (14.0-18.0); LYMPHOCYTES # (AUTO) 1.7 10^3/uL (1.5-3.5); LYMPHOCYTES % (AUTO) 10.7 %; MEAN CORPUSCULAR HEMOGLOBIN 32.3 pg (27.0-31.0); MEAN CORPUSCULAR HGB CONC 33.3 g/dL (32.0-36.0); MEAN PLATELET VOLUME 7.2 fL (7.4-11.4); MONOCYTES # (AUTO) 0.9 10^3/uL (0.0-1.0); MONOCYTES % (AUTO) 5.7 %; NEUTROPHILS # (AUTO) 13.6 10^3/uL (1.5-6.6); NEUTROPHILS % (AUTO) 83.1 %; PLT - PLATELET COUNT 479 10^3/uL (130-450); RED BLOOD COUNT 3.69 10^6/uL (4.70-6.10); RED CELL DISTRIBUTION WIDTH 13.7 % (12.0-15.0); WHITE BLOOD COUNT 16.4 x10^3/uL (4.8-10.8)
[2017-05-04 06:31] LABS: ALBUMIN 2.7 g/dL (3.2-5.5); ALBUMIN/GLOBULIN RATIO 0.8 (1.0-2.2); BILIRUBIN,TOTAL 0.2 mg/dL (0.2-1.0); CALCIUM 8.4 mg/dL (8.5-10.3); CREATININE 0.9 mg/dL (0.6-1.2); MAGNESIUM 1.9 mg/dL (1.7-2.8); TOTAL PROTEIN 6.1 g/dL (6.7-8.2)
[2017-05-04] MEDS: IPRATROPIUM/ALBUTEROL 3 ML NEB INH SCH ×4 (07:03→17:53)
[2017-05-04] MEDS ORDERED: AZITHROMYCIN 250 MG TABLET PO STA (07:16)
[2017-05-04] MEDS: DOCUSATE SODIUM 100 MG CAPSULE PO SCH (09:18)
[2017-05-04] MEDS: POLYETHYLENE GLYCOL 3350 17 GM PACKET PO SCH (09:19)
[2017-05-04] MEDS: ATENOLOL 25 MG TABLET PO SCH (09:29)
[2017-05-04] MEDS: guaiFENesin 600 MG TABLET PO SCH ×2 (09:29→20:16)
[2017-05-04] MEDS: DIDANOSINE PO SCH (09:30)
[2017-05-04] MEDS: EFAVIRENZ 600 MG PO SCH (09:30)
[2017-05-04] MEDS: Emtricitabine/Tenofov Alafenam [Descovy 200-25 Mg Tablet] 1 TAB PO SCH (09:31)
[2017-05-04] MEDS: NYSTATIN 500000 UNITS/5 ML UDC PO SCH ×4 (09:33→20:15)
[2017-05-04] MEDS: SODIUM CHLORIDE 0.9% 1,000 ML IV SCH ×3 (10:49→20:23)
--- NOTE | 2017-05-04 11:32 | PROVIDER PROGRESS NOTE ---
Assessment/Plan - Problem List (1) Bilateral pneumonia Assessment/Plan: Presented with increased weakness, anorexia and productive cough. CTA ruled out PE and confirmed R>L bibasilar consolidations. Has had slow improvement, now off O2, sputum cx haemophilus influenza. He is moving in room with less fatigue. Leukocytosis of 21k on admission, now 16.4k. -DC zosyn and levaquin -Azithromycin PO -DC solumedrol and start prednisone 40mg daily in AM -Q6 duonebs -Mucinex to help loosen mucus -Continue close O2 sat monitoring with exertion -2V CXR in 2-3weeks to ensure resolution of pneumonia CX noted 10cm nodular density in RUL, not noted on CTA. May have been confluence of rib and vessels. (2) COPD (chronic obstructive pulmonary disease) Qualifiers: COPD type: COPD with acute lower respiratory infection Qualified Code(s): J44.0 - Chronic obstructive pulmonary disease with acute lower respiratory infection Assessment/Plan: Chronic, not on inhalers, still smoking. Mild exacerbation due to pneumonia. Improving with treatment as noted above. -Consider albuterol prn and pred taper at discharge (3) Hypoxemia Assessment/Plan: Hypoxia due to bilateral pneumonia. Previously as much as 4L on admission needed, now 1L to RA. -Encourage DB&C -Continue to wean O2 -O2 sats prn and with VS (4) HIV (human immunodeficiency virus infection) Assessment/Plan: Chronic, stable on his current regimen. Next follow-up in July. Unknown last CD4. -Conitnue didanosine, sustiva, descovy (5) Tobacco dependence Assessment/Plan: Continues to smoke, 3/4ppd. -Encourage cessation -Start nicotine patch in AM (6) Dupuytren's contracture Assessment/Plan: Left hand, s/p surgical repair at . Stitches and splint removed 05/03. Wound dry, hard, no s/s of infection -Clean with soap and water -Follow-up with previously planned hand therapy - Current Meds Current Meds: Current Medications Generic Name Dose Route Start Last Admin Trade Name Freq PRN Reason Stop Dose Admin Albuterol/Ipratropium 3 ml 05/01/17 16:00 05/04/17 10:34 Duoneb INH 3 ml RTQID [facility] Administration Atenolol 50 mg 05/02/17 08:00 05/04/17 09:29 Tenormin PO 50 mg 0800 [facility] Administration Docusate Sodium 100 mg 05/03/17 08:00 05/04/17 09:18 Colace 100mg Capsule PO Not Given DAILY [facility] Guaifenesin 600 mg 05/01/17 17:00 05/04/17 09:29 Mucinex PO 600 mg BID [facility] Administration Sodium Chloride 1,000 mls @ 100 mls/hr 05/01/17 12:00 05/04/17 10:50 Normal Saline 0.9% IV 100 mls/hr .Q10H [facility] Administration Nystatin 5 ml 05/02/17 09:00 05/04/17 09:33 Mycostatin PO Not Given QID [facility] Didanosine [ 1 each 05/02/17 08:00 05/04/17 09:30 Didanosine] 250 Mg PO 1 each 0800 [facility] Administration Efavirenz [Sustiva] 1 each 05/02/17 08:00 05/04/17 09:30 600 Mg PO 1 each 0800 [facility] Administration Emtricitabine/ 1 each 05/02/17 08:00 05/04/17 09:31 Tenofov Alafenam [ PO 1 each Descovy 200-25 Mg 0800 [facility] Administration Tablet] 1 Tab Polyethylene Glycol 17 gm 05/02/17 09:00 05/04/17 09:19 Miralax PO Not Given DAILY [facility] Sodium Chloride 10 ml 05/01/17 11:59 05/03/17 14:26 Normal Saline Flush 0.9% IVP 10 ml PRN PRN Administration NEEDED PER PROVIDER ORDERS Sodium Chloride 10 ml 05/01/17 17:00 05/04/17 09:19 Normal Saline Flush 0.9% IVP Not Given 0100,0900,1700 [facility] - Lab Result Lab results reviewed: Yes Fish Bone Diagrams: 05/04/17 05:54 05/04/17 05:54 - Diagnostic Imaging Results Diagnostic Imaging Results: Final report reviewed - Additional Planning Condition/Complexity: Improved My Orders: My Active Orders 05/05/17 08:00 Azithromycin [Zithromax] 250 mg PO DAILY predniSONE [Deltasone] 40 mg PO DAILYWM Plan Discussed with:: Patient Time Spent: 15-30 minutes Subjective - Subjective Patient Reports: Feeling Better (less SOB and moving around room easier, no chets pain or dizziness. Hand moving well, no tenderness.) Nursing Reports: Other (Desat 86% at rest on RA sitting up on EOB. PLaced on 3L NC and now 91%. PT eval and feels pateint will need walker, also thinks someone to check in on him would be better.) Objective Vital Signs: Vital Signs - 24 hr 05/03/17 05/03/17 05/03/17 13:00 15:15 15:48 Temperature 36.7 C 36.7 C Heart Rate 80 Heart Rate [ Brachial] Heart Rate [ 73 83 Radial] Respiratory 20 18 24 Rate Blood Pressure 108/56 L 121/55 L [Right Brachial artery] O2 Saturation 93 93 05/03/17 05/04/17 05/04/17 19:52 00:00 07:05 Temperature 36.8 C Heart Rate 77 88 Heart Rate [ Brachial] Heart Rate [ 74 Radial] Respiratory 20 20 20 Rate Blood Pressure 138/78 H [Right Brachial artery] O2 Saturation 94 05/04/17 05/04/17 05/04/17 07:42 10:35 10:40 Temperature 36.5 C Heart Rate 84 Heart Rate [ 74 Brachial] Heart Rate [ 79 Radial] Respiratory 18 20 20 Rate Blood Pressure 133/77 H 131/72 H [Right Brachial artery] O2 Saturation 96 Oxygen O2 Source [With Activity] Nasal cannula O2 Source Room air I&O (Last 24 Hrs): Intake and Output Totals x24h 05/02/17 05/03/17 05/04/17 23:59 23:59 23:59 Intake Total 3460.000 3128 450 Output Total 1075 1075 900 Balance 2385.000 2053 -450 General: Alert, Oriented x3, Cooperative, No acute distress HEENT: PERRLA Neck: Supple, No JVD Cardiovascular: Regular rate, No murmurs Respiratory: Chest non-tender, No respiratory distress, Rhonchi Abdomen: Normal bowel sounds, Soft, No tenderness Extremities: No clubbing, No cyanosis, No edema Skin: No rashes - Results Results: Laboratory Results WBC 16.4 x10^3/uL (4.8-10.8) H 05/04/17 05:54 RBC 3.69 10^6/uL (4.70-6.10) L 05/04/17 05:54 Hgb 11.9 g/dL (14.0-18.0) L 05/04/17 05:54 Hct 35.8 % (42.0-52.0) L 05/04/17 05:54 MCV 97.0 fL (80.0-94.0) H 05/04/17 05:54 MCH 32.3 pg (27.0-31.0) H 05/04/17 05:54 MCHC 33.3 g/dL (32.0-36.0) 05/04/17 05:54 RDW 13.7 % (12.0-15.0) 05/04/17 05:54 Plt Count 479 10^3/uL (130-450) H 05/04/17 05:54 MPV 7.2 fL (7.4-11.4) L 05/04/17 05:54 Neut # 13.6 10^3/uL (1.5-6.6) H 05/04/17 05:54 Lymph # 1.7 10^3/uL (1.5-3.5) 05/04/17 05:54 [place] # 0.9 10^3/uL (0.0-1.0) 05/04/17 05:54 Eos # 0.0 10^3/uL (0.0-0.7) 05/04/17 05:54 Baso # 0.1 10^3/uL (0.0-0.1) 05/04/17 05:54 Absolute Nucleated RBC 0.00 x10^3/uL 05/04/17 05:54 Nucleated RBC % 0.0 /100WBC 05/04/17 05:54 Manual Slide Review Indicated 05/03/17 05:05 WBC Morphology NORMAL APPEARANCE (NORMAL) 05/01/17 09:54 Platelet Estimate INCREASED (>450,000) (NORMAL) 05/03/17 05:05 Platelet Morphology NORMAL APPEARANCE (NORMAL) 05/03/17 05:05 RBC Morph Micro Appear NORMAL APPEARANCE (NORMAL) 05/02/17 05:52 RBC Morph Micro Appear NORMAL APPEARANCE (NORMAL) 05/03/17 05:05 D-Dimer 262.2 ng/mL (200.0-255.0) H 05/01/17 09:54 Bld Gas Analysis Time 1200 05/01/17 11:50 Sample Site RIGHT RADIAL 05/01/17 11:50 ABG pH 7.39 (7.35-7.45) 05/01/17 11:50 ABG pCO2 46 mmHg (34-45) H 05/01/17 11:50 ABG pO2 56 mmHg (80-100) L 05/01/17 11:50 ABG HCO3 27.2 mmol/L (22.0-26.0) H 05/01/17 11:50 ABG Total CO2 28.6 MMOL/L (21.0-29.0) 05/01/17 11:50 ABG O2 Saturation 90 % (94-98) L 05/01/17 11:50 ABG Base Excess 1.7 mmol/L (-2.0-3.0) 05/01/17 11:50 Luis Test POSITIVE 05/01/17 11:50 O2 Delivery Device NASAL CANNULA 05/01/17 11:50 O2 Liters/Min 3.00 LPM 05/01/17 11:50 Sodium 142 mmol/L (135-145) 05/04/17 05:54 Potassium 4.3 mmol/L (3.5-5.0) 05/04/17 05:54 Chloride 110 mmol/L (101-111) 05/04/17 05:54 Carbon Dioxide 26 mmol/L (21-32) 05/04/17 05:54 Anion Gap 6.0 (6-13) 05/04/17 05:54 BUN 18 mg/dL (6-20) 05/04/17 05:54 Creatinine 0.9 mg/dL (0.6-1.2) 05/04/17 05:54 Estimated GFR (MDRD) 83 (>89) L 05/04/17 05:54 Glucose 114 mg/dL (70-100) H 05/04/17 05:54 Lactic Acid 1.2 mmol/L (0.5-2.2) 05/01/17 09:54 Calcium 8.4 mg/dL (8.5-10.3) L 05/04/17 05:54 Magnesium 1.9 mg/dL (1.7-2.8) 05/04/17 05:54 Total Bilirubin 0.2 mg/dL (0.2-1.0) 05/04/17 05:54 AST 22 IU/L (10-42) 05/04/17 05:54 ALT 18 IU/L (10-60) 05/04/17 05:54 Alkaline Phosphatase 28 IU/L (42-121) L 05/04/17 05:54 Troponin I < 0.04 ng/mL (<0.49) 05/01/17 09:54 B-Natriuretic Peptide 122 pg/mL (5-100) H 05/01/17 09:54 Total Protein 6.1 g/dL (6.7-8.2) L 05/04/17 05:54 Albumin 2.7 g/dL (3.2-5.5) L 05/04/17 05:54 Globulin 3.4 g/dL (2.1-4.2) 05/04/17 05:54 Albumin/Globulin Ratio 0.8 (1.0-2.2) L 05/04/17 05:54 Lipase 35 U/L (22-51) 05/01/17 09:54
[2017-05-05] MEDS: SODIUM CHLORIDE FLUSH 0.9% 10 ML SYRINGE IVP SCH ×2 (01:35→09:09)
[2017-05-05] MEDS: SODIUM CHLORIDE 0.9% 1,000 ML IV SCH (06:36)
[2017-05-05] MEDS: IPRATROPIUM/ALBUTEROL 3 ML NEB INH SCH ×2 (07:12→12:01)
[2017-05-05] MEDS ORDERED: predniSONE 20 MG TABLET PO SCH (08:00)
[2017-05-05] MEDS ORDERED: AZITHROMYCIN 250 MG TABLET PO SCH (08:00)
[2017-05-05] MEDS ORDERED: NICOTINE 14 MG PATCH TOP SCH (09:00)
[2017-05-05] MEDS: guaiFENesin 600 MG TABLET PO SCH (09:08)
[2017-05-05] MEDS: ATENOLOL 25 MG TABLET PO SCH (09:08)
[2017-05-05] MEDS: NYSTATIN 500000 UNITS/5 ML UDC PO SCH ×2 (09:09→12:27)
[2017-05-05] MEDS: POLYETHYLENE GLYCOL 3350 17 GM PACKET PO SCH (09:09)
[2017-05-05] MEDS: DOCUSATE SODIUM 100 MG CAPSULE PO SCH (09:09)
[2017-05-05] MEDS: DIDANOSINE PO SCH (09:10)
[2017-05-05] MEDS: EFAVIRENZ 600 MG PO SCH (09:10)
[2017-05-05] MEDS: Emtricitabine/Tenofov Alafenam [Descovy 200-25 Mg Tablet] 1 TAB PO SCH (09:11)
--- NOTE | 2017-05-05 14:26 | Discharge Plan ---
Discharge Plan Disposition: Home, Self Care Condition: Stable Prescriptions: Albuterol Sulf [Ventolin Hfa Inhaler] 1 - 2 puffs INH Q4HR PRN #1 inhaler PRN Reason: Shortness Of Air/Wheezing Azithromycin [Zithromax] 250 mg PO DAILY #4 tablet guaiFENesin [Mucinex] 600 mg PO DAILY #30 tablet Polyethylene Glycol 3350 [Miralax] 17 gm PO DAILY PRN #30 packet PRN Reason: Constipation predniSONE [Prednisone] 40 mg PO DAILY #25 tablet Diet: Regular Activity Restrictions: Activity as Tolerated (avoid heavy exertion or lung irritants like smoke) Shower Restrictions: No Weight Bearing: Full Weight Additional Instructions or Follow Up instructions: You were admitted to the hospital for pneumonia, this was treated with antibiotics, you will continue AZITHROMYCIN for 4 more days. Pneumonia cause flare up of your COPD, this was treated with oxygen, nebulizers and steroids. Continue prednisone taper, use albuterol inhaler as needed for shortness of breath. You should try to quit smoking, discuss again with your primary care. We also recommend outpatient PT which can be arranged by your PCP. No Smoking: If you smoke, Please STOP! Call for help. Follow-up with: Karen Pearce MD [Provider Admit Priv/Credential] - 1 Week
--- NOTE | 2017-05-05 14:32 | DISCHARGE SUMMARY ---
"Discharge Summary Admit Date: 05/01/17 Discharge Date: 05/05/17 Discharging Provider: Brielle MAK Primary Care Provider: Karen Pearce MD Code Status: Attempt Resuscitation Condition at Discharge: Stable Discharge Disposition: 01 Home, Self Care - DIAGNOSES Discharge Diagnoses with Status of Each Condition: (1) Pneumonia due to H influenza, improved (2) COPD exacerbation secondary to pneumonia, improved (3) Hypoxemia, resolved (4) HIV (human immunodeficiency virus infection), chronic, stable (5) Tobacco dependence, chronic, stable (6) Dupuytren's contracture s/p repair, stable - HPI History of Present Illness: Presented with increased weakness, anorexia and productive cough. CTA ruled out PE and confirmed R>L bibasilar consolidations. - CONSULTS | PROCEDURES Consultations: PT/RT - HOSPITAL COURSE Hospital Course: (1) H. influenza pneumonia Has had slow improvement, now off O2, sputum cx haemophilus influenza. He is moving in room with less fatigue, walked 250ft with RT without TRENT or hypoxia. No fevers. Continue zithromycin PO x4 more days. Continue prednisone taper over 11 days. Rx given prn albuterol inhaler. Continue Mucinex to help loosen mucus. -2V CXR in 2-3weeks to ensure resolution of pneumonia (2) COPD (chronic obstructive pulmonary disease) Chronic, not on inhalers, still smoking 3/4 ppd. Mild exacerbation due to pneumonia. Improving with treatment as noted above. (3) Hypoxemia Hypoxia due to bilateral pneumonia. Previously as much as 4L on admission needed, now RA even with exertion. (4) HIV (human immunodeficiency virus infection) Chronic, stable on his current regimen. Next follow-up in July. Unknown last CD4. -Continue didanosine, sustiva, descovy (5) Tobacco dependence Continues to smoke, 3/4ppd. Encourage cessation, he is interested. Refused Rx for nicotine patch, concerned about nightmares. (6) Dupuytren's contracture s/p repair Left hand, s/p surgical repair at ~2weeks ago. Stitches and splint removed . Wound dry, hard, no s/s of infection -Clean with soap and water -Follow-up with previously planned hand therapy - ALLERGIES Allergies/Adverse Reactions: Allergies Allergy/AdvReac Type Severity Reaction Status Date / Time No Known Drug Allergies Allergy Verified 05/01/17 09:26 - MEDICATIONS Home Medications: Ambulatory Orders Medication Instructions Recorded Confirmed Atenolol 50 mg PO 0800 05/01/17 05/01/17 Didanosine 250 mg PO 0800 05/01/17 05/01/17 Efavirenz [Sustiva] 600 mg PO 0800 05/01/17 05/01/17 Emtricitabine/Tenofov Alafenam 1 tab PO 0800 05/01/17 05/01/17 [Descovy 200-25 mg Tablet] Albuterol Sulf [Ventolin Hfa 1 - 2 puffs INH Q4HR PRN #1 inhaler 05/05/17 Inhaler] Azithromycin [Zithromax] 250 mg PO DAILY #4 tablet 05/05/17 Polyethylene Glycol 3350 [Miralax] 17 gm PO DAILY PRN #30 packet 05/05/17 guaiFENesin [Mucinex] 600 mg PO DAILY #30 tablet 05/05/17 predniSONE [Prednisone] 40 mg PO DAILY #25 tablet 05/05/17 - PHYSICAL EXAM AT DISCHARGE General Appearance: positive: No acute distress, Alert Eyes Bilateral: positive: PERRL ENT: positive: No signs of dehydration Respiratory: positive: Chest non-tender, No respiratory distress, Other (still some mildly coarse inspiratory sound which clear with cough.) Cardiovascular: positive: Regular rate & rhythm Peripheral Pulses: positive: 2+ Abdomen: positive: Non-tender, Nml bowel sounds Skin: positive: Color nml, Warm Extremities: positive: Non-tender, Full ROM, Nml appearance. negative: Pedal edema, Calf tenderness Neurologic/Psychiatric: positive: Oriented x3, Motor nml, Sensation nml, Mood/ affect nml - LABS Result Diagrams: 05/04/17 05:54 05/04/17 05:54 - FOLLOW UP Follow Up: Dr Pearce in 1 week - TIME SPENT Time Spent in Discharge (Minutes): 35"
[2017-05-05 14:49] VITALS: BP 141/51
== END 2017-05-05 15:00 | disposition home or self-care (01) | DRG 194 ==
LOC: EDUNIT# → ED 09:21 → MS2 11:59
PROVIDERS: ADMIT Nurse Practitioner; ATTEND Nurse Practitioner Acute Care
DX: J18.9 Pneumonia, unspecified organism (principal); J14 Pneumonia due to Hemophilus influenzae; J44.0 Chronic obstructive pulmonary disease with (acute) lower respiratory infection; J44.1 Chronic obstructive pulmonary disease with (acute) exacerbation; Z72.0 Tobacco use; R09.02 Hypoxemia; K59.00 Constipation, unspecified; I10 Essential (primary) hypertension; F43.10 Post-traumatic stress disorder, unspecified; F17.218 Nicotine dependence, cigarettes, with other nicotine-induced disorders; F41.8 Other specified anxiety disorders; F10.21 Alcohol dependence, in remission; Z21 Asymptomatic human immunodeficiency virus [HIV] infection status; Z98.890 Other specified postprocedural states; Z85.828 Personal history of other malignant neoplasm of skin; Z79.899 Other long term (current) drug therapy; Z48.02 Encounter for removal of sutures
CPT/HCPCS: 36415; 36600; 71046; 71275; 80053; 81001; 81003; 82803; 83605; 83690; 83735; 83880; 84484; 85025; 85379; 87070; 87077; 87086; 87205; 93005; 94640; 94664; 94761; 96361; 96365; 96368; 99283; 99284; 99285

== ENCOUNTER 2018-01-29 12:15 | Outpatient (CLI) | payer MEDICARE | END 2018-01-29 12:16 | disposition home or self-care (01) | LOC: LAB 12:15 | PROVIDERS: ATTEND Internal Medicine | DX: E87.5 Hyperkalemia (principal) | CPT/HCPCS: 36415; 84132 ==

== ENCOUNTER 2018-04-09 08:18 | Day surgery (SDC) | payer MEDICARE ==
[~2018-04-09 08:18] MED LIST: BRIMONIDINE 0.2% OPHTH DROPS 5 ML ONE; BSS/LIDOCAINE/EPINEPHRINE 1 ML SYRINGE ONE; CYCLOPENTOLATE 1% OPHTH DROPS 2 ML ONE; KETOROLAC 0.45% OPHTH DROPS ONE; PHENYLEPHRINE 2.5% OPHTH 2 ML DROPS ONE; PROPARACAINE 0.5% OPHTH DROPS 15 ML ONE; TIMOLOL 0.5% OPHTH DROPS ONE; TRIAMCIN/MOXIFLOX OPHTHALMIC 0.6 ML VIAL IO ONE; VANCOMYCIN OPHTHALMI 8MG/0.8ML 8 MG/0.8 ML SYRINGE IO ONE
[2018-04-09] MEDS ORDERED: LACTATED RINGERS 500 ML IV ONE (08:38)
[2018-04-09] MEDS ORDERED: PHENYLEPHRINE 2.5% OPHTH 2 ML DROPS LEFTEYE ONE (08:45)
[2018-04-09] MEDS ORDERED: PROPARACAINE 0.5% OPHTH DROPS 15 ML LEFTEYE ONE ×2 (08:45→09:37)
[2018-04-09] MEDS ORDERED: KETOROLAC 0.45% OPHTH DROPS LEFTEYE ONE (08:45)
[2018-04-09] MEDS ORDERED: CYCLOPENTOLATE 1% OPHTH DROPS 2 ML LEFTEYE ONE (08:45)
--- NOTE | 2018-04-09 08:58 | ANESTHESIA ---
Pre-Anesthesia VS, & Labs - Diagnosis Left chronic angle closure glaucoma - Procedure Left phaco with IOL implant Vital Signs: Temp Pulse Resp BP Pulse Ox 36.6 C 58 L 18 120/91 H 94 04/09/18 08:39 04/09/18 08:39 04/09/18 08:39 04/09/18 08:39 04/09/18 08:39 Height 5 ft 8 in Weight (kg) 73.5 kg Body Mass Index 24.6 - NPO >8 hours, Other (Small amount of water with all his pills this am) - Lab Results Lab results reviewed: No Home Medications and Allergies Atenolol 50 mg PO 0800 05/01/17 Didanosine 250 mg PO 0805/01/17 Efavirenz [Sustiva] 600 mg PO 0805/01/17 Emtricitabine/Tenofov Alafenam [Descovy 200-25 mg Tablet] 1 [place] [address]/01/17 Allergies/Adverse Reactions: Allergies Allergy/AdvReac Type Severity Reaction Status Date / Time No Known Drug Allergies Allergy Verified 04/09/18 08:51 Anes History & Medical History - Anesthetic History Anesthesia Complications: reports: No previous complications Family history of Anesthesia Complications: Denies Family history of Malignant Hyperthermia: Denies - Medical History Cardiovascular: reports: Hypertension Pulmonary: reports: COPD, Pneumonia Gastrointestinal: reports: None Urinary: reports: Benign prostate hypertrophy Neuro: reports: None Musculoskeletal: reports: None Endocrine/Autoimmune: reports: Other Blood Disorders: reports: HIV/AIDS Skin: reports: None Smoking Status: Current every day smoker Psychosocial: reports: No issues indicated - Surgical History General: Appendectomy, Other Orthopedic: Other Dermatologic: Skin cancer surgery Exam General: Alert Dental: WNL, Poor dentition Mouth Openin Fingerbreadth Neck Mobility: Normal Mallampati classification: II Thyromental Distance: greater than 6 cm Respiratory: Lungs clear Cardiovascular: Regular rate Neurological: Normal speech Mental/Cognitive Status: Alert/Oriented X3 Cognitive Status: Within normal limits Plan Anesthesia Type: MAC Consent for Procedure(s) Verified and Reviewed: Yes Code Status: Attempt Resuscitation ASA classification: 3-Severe systemic disease Is this case an emergency?: No
[2018-04-09] MEDS ORDERED: MIDAZOLAM 2 MG/2 ML VIAL IVP ONE (09:20)
[2018-04-09] MEDS ORDERED: VANCOMYCIN OPHTHALMI 8MG/0.8ML 8 MG/0.8 ML SYRINGE IO ONE ×2 (09:35)
[2018-04-09] MEDS ORDERED: TRIAMCIN/MOXIFLOX OPHTHALMIC 0.6 ML VIAL IO ONE ×2 (09:35)
[2018-04-09] MEDS ORDERED: BRIMONIDINE 0.2% OPHTH DROPS 5 ML OPTH ONE (09:36)
[2018-04-09] MEDS ORDERED: EPINEPHrine 1 MG/ML AMP IR ONE (09:36)
[2018-04-09] MEDS ORDERED: TIMOLOL 0.5% OPHTH DROPS OPTH ONE (09:37)
[2018-04-09] MEDS ORDERED: BSS/LIDOCAINE/EPINEPHRINE 1 ML SYRINGE IO ONE (09:37)
[2018-04-09] MEDS ORDERED: CHONDR SULF/HYALURONATE SYRINGE IO ONE (09:37)
[2018-04-09 10:11] VITALS: BP 115/65
--- NOTE | 2018-04-09 10:53 | OPERATIVE REPORT ---
DATE OF SERVICE: 04/09/2018 Physician: Dong Stein MD PREOPERATIVE DIAGNOSIS: Chronic angle closure glaucoma seen a week or 2 ago with an initial pressure in his left eye of 54 and optic nerve cup of 0.95. He also had a very visually significant cataract, left eye, 4+ + nuclear sclerosis. This was a complex surgery due to poor pupil dilation, probably due to hypoxia from the high pressure, so a Malyugin ring was used to mechanically dilate the pupil. POSTOPERATIVE DIAGNOSIS: Chronic angle closure glaucoma seen a week or 2 ago with an initial pressure in his left eye of 54 and optic nerve cup of 0.95. He also had a very visually significant cataract, left eye, 4+ + nuclear sclerosis. This was a complex surgery due to poor pupil dilation, probably due to hypoxia from the high pressure, so a Malyugin ring was used to mechanically dilate the pupil. PROCEDURE: Phacoemulsification with posterior chamber intraocular lens implant, left eye. SURGEON: Dong Stein MD ANESTHESIA: Monitored anesthesia care. COMPLICATIONS: None. OPERATIVE INDICATIONS: This is a 72-year-old man with progressive vision loss in the left eye due to 4+ + nuclear sclerotic cataract. 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 Best corrected visual acuity was 20/150 with glare to hand motion vision in the left eye. Indications for surgery were primarily the chronic angle closure glaucoma, but also decrease in vision, difficulty seeing words, difficulty reading, difficulty seeing captions and game scores on TV, difficulty seeing street signs, difficulty with glare or bright lights, difficulty tracking a golf ball, and decreased acuity with firearms. He was consented at length concerning risks and benefits of cataract surgery to treat his cataracts and his glaucoma, after which he expressed a desire to proceed with surgery. OPERATIVE PROCEDURE: The patient was taken into OR #3 and placed under monitored anesthesia care. A surgical timeout was conducted confirming correct patient, correct procedure and correct surgical site. He was given topical anesthesia and prepped and draped in usual sterile fashion. The eye was entered at the 6 and 3 o'clock positions. Intracameral Shugarcaine was injected into the anterior chamber, followed by Viscoat. The chamber was very shallow and his pupil was not very well dilated. Therefore, a 7.0 mm Malyugin ring was injected into the anterior chamber and engaged the pupil at 4 points. Then, a continuous-tear curvilinear capsulorrhexis was performed. The capsule was rather thick and rubbery, again likely due to hypoxia. The nucleus was hydrodissected and phacoemulsified. The cortex was evacuated using automated infusion and aspiration (I&A). Provisc was injected in the capsular bag and a 21.0 diopter intraocular lens was inserted into the bag. Approximately 0.8 mL of a mixture of triamcinolone, moxifloxacin, and vancomycin was injected subconjunctivally in the superior quadrant for infection and inflammation prophylaxis. The Malyugin ring was then disengaged from the pupil margin and removed from the anterior chamber. There was only mild to moderate deepening of the chamber after cataract surgery. I&A was used to evacuate the viscoelastic materials. The eye was inflated to physiologic pressure with balanced salt solution and found to be watertight. Patient was taken from the operating room in good condition and given postop instructions. TD: 04/09/2018 10:05 FARHAD
== END 2018-04-09 08:19 | disposition home or self-care (01) ==
LOC: SDS 08:18
PROVIDERS: ATTEND Ophthalmology
PROC: 08RK3JZ Replacement of Left Lens with Synthetic Substitute, Percutaneous Approach (ICD-10-PCS; principal; 2018-04-09 09:30)
DX: H40.2223 Chronic angle-closure glaucoma, left eye, severe stage (principal); H25.12 Age-related nuclear cataract, left eye; J44.9 Chronic obstructive pulmonary disease, unspecified; B20 Human immunodeficiency virus [HIV] disease; I10 Essential (primary) hypertension; N40.0 Benign prostatic hyperplasia without lower urinary tract symptoms; F17.210 Nicotine dependence, cigarettes, uncomplicated; F43.10 Post-traumatic stress disorder, unspecified; Z87.01 Personal history of pneumonia (recurrent)
CPT/HCPCS: 66982; A9270; J3490; V2632

== ENCOUNTER 2018-12-17 09:06 | Day surgery (SDC) | payer OTHER ==
[2018-12-17] MEDS ORDERED: fentaNYL 100 MCG/2 ML VIAL IVP ONE (09:07)
[2018-12-17] MEDS ORDERED: MIDAZOLAM 2 MG/2 ML VIAL IVP ONE (09:07)
[2018-12-17] MEDS ORDERED: PHENYLEPHRINE 2.5% OPHTH 2 ML DROPS RIGHTEYE ONE (09:30)
[2018-12-17] MEDS ORDERED: CYCLOPENTOLATE 1% OPHTH DROPS 2 ML RIGHTEYE ONE (09:30)
[2018-12-17] MEDS ORDERED: PROPARACAINE 0.5% OPHTH DROPS 15 ML RIGHTEYE ONE ×2 (09:30→10:09)
[2018-12-17] MEDS ORDERED: KETOROLAC 0.45% OPHTH DROPS RIGHTEYE ONE (09:30)
[2018-12-17] MEDS ORDERED: LACTATED RINGERS 500 ML IV ONE (09:35)
--- NOTE | 2018-12-17 09:43 | ANESTHESIA ---
Pre-Anesthesia VS, & Labs - Diagnosis Right senile combined cataract - Procedure Right phaco with IOL implant Vital Signs: Temp Pulse Resp BP Pulse Ox 37.8 C H 65 16 139/75 H 99 12/17/18 09:25 12/17/18 09:25 12/17/18 09:25 12/17/18 09:25 12/17/18 09:25 Height 5 ft 9 in Weight (kg) 71.8 kg Body Mass Index 24.6 - NPO Other (water with pills at 0545) Home Medications and Allergies [place]tenol[place] 79905/01/17 Efavirenz [Sustiva] 600 [place] 79905/01/17 Emtricitabine/Tenofov Alafenam [Descovy 200-25 mg Tablet] 1 [place] [address]/01/17 Allergies/Adverse Reactions: Allergies Allergy/AdvReac Type Severity Reaction Status Date / Time No Known Drug Allergies Allergy Verified 04/09/18 08:51 Anes History & Medical History - Anesthetic History Anesthesia Complications: reports: No previous complications Family history of Anesthesia Complications: Denies Family history of Malignant Hyperthermia: Denies - Medical History Cardiovascular: reports: Hypertension Pulmonary: reports: COPD, Pneumonia Gastrointestinal: reports: None Urinary: reports: Benign prostate hypertrophy Neuro: reports: None Musculoskeletal: reports: None Endocrine/Autoimmune: reports: Other Blood Disorders: reports: HIV/AIDS Skin: reports: None Smoking Status: Current every day smoker Psychosocial: reports: Depression - Surgical History General: Appendectomy, Other Eyes Ears Nose Throat (EENT): Cataracts Orthopedic: Other Dermatologic: Skin cancer surgery Exam General: Alert, Oriented x3, Cooperative Dental: WNL Mouth Opening: Greater than 4 Fingerbreadths Neck Mobility: Normal Mallampati classification: II Thyromental Distance: greater than 6 cm Neurological: Normal speech Mental/Cognitive Status: Alert/Oriented X3, Normal for patient Cognitive Status: Within normal limits Plan Anesthesia Type: MAC Consent for Procedure(s) Verified and Reviewed: Yes Code Status: Attempt Resuscitation ASA classification: 3-Severe systemic disease Is this case an emergency?: No
[2018-12-17] MEDS ORDERED: EPINEPHrine 1 MG/ML AMP IVP ONE (10:15)
[2018-12-17] MEDS ORDERED: BRIMONIDINE 0.2% OPHTH DROPS 5 ML OPTH ONE (10:15)
[2018-12-17] MEDS ORDERED: TIMOLOL 0.5% OPHTH DROPS OPTH ONE (10:16)
[2018-12-17] MEDS ORDERED: CHONDR SULF/HYALURONATE SYRINGE IO ONE (10:16)
[2018-12-17] MEDS ORDERED: BSS/LIDOCAINE/EPINEPHRINE 1 ML SYRINGE IO ONE (10:17)
[2018-12-17 10:49] VITALS: BP 114/62
--- NOTE | 2018-12-17 16:17 | OPERATIVE REPORT ---
DATE OF SERVICE: 12/17/2018 Physician: Dong Stein MD PREOPERATIVE DIAGNOSIS: Chronic angle closure glaucoma in combination with, and perhaps exacerbated by, nuclear sclerotic cataract, which is also visually significant with glare to 20/50 in the right eye. Cataract surgery was performed on the left eye on 04/09/2018. POSTOPERATIVE DIAGNOSIS: Chronic angle closure glaucoma in combination with, and perhaps exacerbated by, nuclear sclerotic cataract, which is also visually significant with glare to 20/50 in the right eye. Cataract surgery was performed on the left eye on 04/09/2018. PROCEDURE: Phacoemulsification with posterior chamber intraocular lens implant, right eye. SURGEON: Dong Stein MD ANESTHESIA: Monitored anesthesia care. COMPLICATIONS: None. OPERATIVE INDICATIONS: This is a 73-year-old man with progressive vision loss in the right eye due to a 3+ nuclear sclerotic and vacuolar cataract. Best corrected visual acuity was 20/25, with glare to 20/50 in the right eye; however, this is being done primarily in an attempt to control pressure and chronic angle closure glaucoma. He was consented at length concerning risks and benefits of cataract surgery, after which he expressed a desire to proceed with surgery. OPERATIVE PROCEDURE: The patient was taken to OR #3 and placed under monitored anesthesia care. A surgical timeout was conducted confirming correct patient, correct procedure, and correct surgical site. He was given topical anesthesia, and prepped and draped in the usual sterile fashion. The eye was entered at the 12 and 9 o'clock positions. Intracameral Shugarcaine was injected into the anterior chamber, followed by Viscoat. A continuous-tear curvilinear capsulorrhexis was performed. The nucleus was hydrodissected and phacoemulsified. The cortex was evacuated using automated infusion and aspiration. Provisc was injected into the capsular bag, and a 22.0 diopter intraocular lens inserted in the bag. Approximately 0.25 mL of a mixture of triamcinolone and moxifloxacin was injected as transsclerally into the vitreous. An additional 0.55 mL of a mixture of triamcinolone, moxifloxacin and vancomycin was injected subconjunctivally in the superior quadrant for infection and inflammation prophylaxis. I and A was used to evacuate the viscoelastic materials. The eye was inflated to physiologic pressure using balanced salt solution and found to be watertight. The patient was taken from the operating room in good condition and given postoperative instructions. TD: 12/17/2018 10:38 FARHAD
== END 2018-12-17 09:07 | disposition home or self-care (01) ==
LOC: SDS 09:06
PROVIDERS: ATTEND Ophthalmology
PROC: 08RJ3JZ Replacement of Right Lens with Synthetic Substitute, Percutaneous Approach (ICD-10-PCS; principal; 2018-12-17 10:30)
DX: H40.221 Chronic angle-closure glaucoma, right eye (principal); H25.11 Age-related nuclear cataract, right eye; J44.9 Chronic obstructive pulmonary disease, unspecified; B20 Human immunodeficiency virus [HIV] disease; N40.0 Benign prostatic hyperplasia without lower urinary tract symptoms; I10 Essential (primary) hypertension; F17.210 Nicotine dependence, cigarettes, uncomplicated
CPT/HCPCS: 66984; A9270; J3490; V2632

== ENCOUNTER 2021-12-01 08:42 | Emergency (ER) | payer OTHER ==
[2021-12-01 09:53] LABS: BILIRUBIN,URINE NEGATIVE (NEGATIVE); GLUCOSE, URINE (UA) NEGATIVE (NEGATIVE); KETONES,URINE (UA) TRACE mg/dL (NEGATIVE); LEUKOCYTE ESTERASE, URINE MODERATE (NEGATIVE); NITRITE,URINE POSITIVE (NEGATIVE); OCCULT BLOOD,URINE LARGE (NEGATIVE); PROTEIN,URINE TRACE mg/dL (NEGATIVE); UROBILINOGEN,URINE 0.2 (NORMAL) E.U./dL (NORMAL)
--- NOTE | 2021-12-01 09:56 | ED Physician Documentation ---
PD HPI MALE - Stated complaint Stated Complaint: MALE - Chief complaint Chief Complaint: Abd Pain - History obtained from History obtained from: Patient - History of Present Illness Timing - onset: Today Timing - duration: Hours Timing - details: Gradual onset, Still present Associated symptoms: Unable to urinate, Abdominal pain Similar symptoms before: Diagnosis (urinary retention) Recently seen: Not recently seen - Additional information Additional information: 76-year-old Dre Estrada has a history of hypertension, HIV and COPD. He has been having some issue with difficulty initiating a stream, a weak stream and a double dribble for the past year. He has not been in to see the urologist. He has had a prior prostate biopsy done more than 10 years ago. Today he is unable to urinate and has mounting lower abdominal pain. He has been constipated for the past day. He does not otherwise feel ill and since having the catheter placed he is feeling much improved. Review of Systems Constitutional: denies: Fever Ears: denies: Ear pain Nose: denies: Congestion Throat: denies: Sore throat Cardiac: denies: Palpitations Respiratory: denies: Dyspnea, Cough GI: reports: Abdominal Pain, Constipation. denies: Vomiting, Diarrhea : reports: Unable to Void. denies: Dysuria, Frequency Skin: denies: Rash Musculoskeletal: denies: Neck pain, Back pain, Extremity pain Neurologic: denies: Generalized weakness, Focal weakness, Numbness PD PAST MEDICAL HISTORY - Past Medical History Cardiovascular: Hypertension Respiratory: COPD, Pneumonia Neuro: None Endocrine/Autoimmune: Other GI: None : Benign prostate hypertrophy HEENT: Glaucoma Psych: Depression, Panic attacks, Post traumatic stress disorder Musculoskeletal: None Derm: None - Past Surgical History General: Appendectomy, Other Ortho: Other HEENT: Cataracts Derm: Skin cancer surgery - Present Medications Home Medications: Ambulatory Orders Medication Instructions Recorded Confirmed Efavirenz [Sustiva] 600 mg PO 0800 05/01/17 12/17/18 Emtricitabine/Tenofov Alafenam 1 tab PO 00 05/01/17 12/17/18 [Descovy 200-25 mg Tablet] atenoloL [Atenolol] 50 mg PO 0800 05/01/17 12/17/18 Ciprofloxacin HCl [Cipro] 500 mg PO BID #14 tablet 12/01/21 Tamsulosin [Flomax] 0.4 mg PO DAILY #30 cap 12/01/21 - Allergies Allergies/Adverse Reactions: Allergies Allergy/AdvReac Type Severity Reaction Status Date / Time No Known Drug Allergies Allergy Verified 12/01/21 09:03 - Social History Does the pt smoke?: Yes Smoking Status: Current every day smoker - POLST Patient has POLST: No POLST Status: Limited Interventions (No intubation) PD ED PE NORMAL - Vitals Vital signs reviewed: Yes (hypertensive ) - General General: Alert and oriented X 3, No acute distress, Well developed/nourished, Other (catheter has been placed the patient appears comfortable and smells heavily of tobacco. 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 CLOUDY Urine pH 6.0 Ur Specific [place] 1.020 Urine Protein TRACE Urine Glucose (UA) NEGATIVE Urine Ketones TRACE Urine Occult Blood LARGE H Urine Nitrite POSITIVE H Urine Bilirubin NEGATIVE Urine Urobilinogen 0.2 (NORMAL) Ur Leukocyte Esterase MODERATE H Urine RBC 0-5 Urine WBC >25 H Ur Squamous Epith Cells RARE Squamous Urine Bacteria Moderate H Ur Microscopic Review INDICATED Urine Culture Comments INDICATED PD MEDICAL DECISION MAKING - ED course Complexity details: considered differential, d/w patient ED course: 76-year-old male with chronic prostate symptoms has developed acute urinary retention. He has not previously been on Flomax. We have placed a Clement catheter and intend to keep this Clement catheter in place for [address] the patient on Flomax now and he will follow-up with his primary for referral to urology next week. His urine does appears infected and he is administered IM rocephin and placed onto a course of cipro. Departure - Departure Disposition: 01 Home, Self Care Clinical Impression: Urinary retention Urinary tract infection Qualifiers: Urinary tract infection type: acute cystitis Hematuria presence: with hematuria Qualified Code(s): N30.01 - Acute cystitis with hematuria Condition: Stable Instructions: ED Catheter Care Clement, ED Retention Urinary Male Follow-Up: Karen Pearce MD [Primary Care Provider] - Prescriptions: Ciprofloxacin HCl [Cipro] 500 mg PO BID #14 tablet Tamsulosin [Flomax] 0.4 mg PO DAILY #30 cap Comments: Dre, today looks like you have acute urinary retention and this does look like it distended your bladder quite a bit. When this happens we will need to leave the catheter in place for about a week. My recommendation is to follow-up with Dr. Pearce next week for a voiding trial and referral to urology. In the meantime we will start you on Flomax which should help with your prostate symptoms. Take this medication with caution as it can sometimes make you feel lightheaded if you stand up too fast. Discharge Date/Time: 12/01/21 12:50
[2021-12-01 10:06] LABS: CLARITY,URINE SL. CLOUDY (CLEAR)
[2021-12-01 10:07] LABS: RBC,URINE 0-5 /HPF (0-5); WBC,URINE >25 /HPF (0-3)
[2021-12-01 10:08] LABS: BACTERIA,URINE Moderate /HPF (None Seen); SQUAMOUS EPITHELIAL CELL,UR RARE Squamous (<= Few)
[2021-12-01] MEDS ORDERED: LIDOCAINE 1% 2 ML VIAL MC ONE (11:03)
[2021-12-01] MEDS ORDERED: cefTRIAXone 1 GM VIAL IM STA (11:03)
[2021-12-01 12:44] VITALS: BP 145/76
== END 2021-12-01 12:50 | disposition home or self-care (01) ==
LOC: ED 08:42
DX: R33.9 Retention of urine, unspecified (principal); N30.01 Acute cystitis with hematuria; F17.200 Nicotine dependence, unspecified, uncomplicated
CPT/HCPCS: 51702; 51798; 81001; 81003; 87086; 87181; 99283; 99284

== ENCOUNTER 2021-12-12 01:26 | Outpatient (CLI) | payer OTHER | END 2021-12-12 23:59 | disposition critical access hospital (66) | LOC: EMS 01:26 | DX: R33.9 Retention of urine, unspecified (principal); R10.9 Unspecified abdominal pain | CPT/HCPCS: A0425; A0429 ==

== ENCOUNTER 2021-12-12 01:46 | Emergency (ER) | payer OTHER ==
[2021-12-12 02:12] LABS: BILIRUBIN,URINE NEGATIVE (NEGATIVE); GLUCOSE, URINE (UA) NEGATIVE (NEGATIVE); KETONES,URINE (UA) NEGATIVE (NEGATIVE); LEUKOCYTE ESTERASE, URINE NEGATIVE (NEGATIVE); NITRITE,URINE NEGATIVE (NEGATIVE); OCCULT BLOOD,URINE MODERATE (NEGATIVE); PROTEIN,URINE NEGATIVE (NEGATIVE); UROBILINOGEN,URINE 0.2 (NORMAL) E.U./dL (NORMAL)
[2021-12-12 02:24] LABS: CLARITY,URINE CLEAR (CLEAR)
[2021-12-12 02:25] LABS: BACTERIA,URINE None Seen /HPF (None Seen); SQUAMOUS EPITHELIAL CELL,UR RARE Squamous (<= Few); WBC,URINE 0-3 /HPF (0-3)
--- NOTE | 2021-12-12 04:15 | ED Physician Documentation ---
History of Present Illness - Stated complaint Stated Complaint: UNABLE TO URINATE - Chief complaint Chief Complaint: Abd Pain - History obtained from History obtained from: Patient - Additonal information Additional information: 76-year-old man with recent ED visit for urinary tract infection with indwelling Rodriguez placement 1 week ago, status post removal yesterday with Dr. Pearce, presents with urinary retention since 1 PM yesterday. Patient endorsing moderate lower abdominal discomfort. Review of Systems Constitutional: denies: Fever, Chills GI: reports: Abdominal Pain : reports: Unable to Void PD PAST MEDICAL HISTORY - Past Medical History Past Medical History: Yes Cardiovascular: Hypertension Respiratory: COPD, Pneumonia Neuro: None Endocrine/Autoimmune: Other GI: None : Benign prostate hypertrophy HEENT: Glaucoma Psych: Depression, Panic attacks, Post traumatic stress disorder Musculoskeletal: None Derm: None - Past Surgical History Past Surgical History: Yes General: Appendectomy, Other Ortho: Other HEENT: Cataracts Derm: Skin cancer surgery - Present Medications Home Medications: Ambulatory Orders Medication Instructions Recorded Confirmed Efavirenz [Sustiva] 600 mg PO 0800 05/01/17 12/12/21 atenoloL [Atenolol] 50 mg PO 0800 05/01/17 12/12/21 Tamsulosin [Flomax] 0.4 mg PO DAILY #30 cap 12/01/21 12/12/21 Atorvastatin Calcium 10 mg PO DAILY 12/12/21 12/12/21 Bictegrav/Emtricit/Tenofov Ala 50 mg PO DAILY 12/12/21 12/12/21 [Biktarvy 50-200-25 mg Tablet] - Allergies Allergies/Adverse Reactions: Allergies Allergy/AdvReac Type Severity Reaction Status Date / Time No Known Drug Allergies Allergy Verified 12/12/21 01:55 - Social History Does the pt smoke?: Yes Smoking Status: Current every day smoker Does the pt drink ETOH?: No Does the pt have substance abuse?: No - Immunizations Immunizations are current?: Yes - POLST Patient has POLST: No POLST Status: Limited Interventions (No intubation) PD ED PE NORMAL - Vitals Vital signs reviewed: Yes - General General: Alert and oriented X 3, No acute distress, Well developed/nourished - HEENT HEENT: Atraumatic, PERRL, EOMI - Neck Neck: Supple, no meningeal sign - Cardiac Cardiac: RRR - Respiratory Respiratory: No respiratory distress, Clear bilaterally - Abdomen Abdomen: Non tender, Non distended - Male Male : Other (rodriguez replaced- drained 800cc blood tinged fluid) Results - Vitals Vitals: Vital Signs - 24 hr 12/12/21 12/12/21 01:47 02:03 Temperature 35.7 C L Heart Rate 54 L 76 Respiratory 16 17 Rate Blood Pressure 120/72 127/70 O2 Saturation 95 94 Oxygen O2 Source [With Activity] Nasal cannula O2 Source Room air - Labs Labs: Laboratory Tests 12/12/21 02:05 Urine Color YELLOW Urine Clarity CLEAR Urine pH 6.0 Ur Specific [place] 1.010 Urine Protein NEGATIVE Urine Glucose (UA) NEGATIVE Urine Ketones NEGATIVE Urine Occult Blood MODERATE H Urine Nitrite NEGATIVE Urine Bilirubin NEGATIVE Urine Urobilinogen 0.2 (NORMAL) Ur Leukocyte Esterase NEGATIVE Urine RBC 6-10 H Urine WBC 0-3 Ur Squamous Epith Cells RARE Squamous Urine Bacteria None Seen Ur Microscopic Review INDICATED Urine Culture Comments NOT INDICATED PD MEDICAL DECISION MAKING - ED course ED course: 76-year-old man presents with urinary retention, resolving status post Rodriguez replacement. 800 cc of blood-tinged fluid immediately in the bag. Advised to continue Flomax and follow-up with urology. Return precautions given. Departure - Departure Disposition: 01 Home, Self Care Clinical Impression: Urinary retention Condition: Stable Instructions: ED Retention Urinary Male, ED Catheter Care Rodriguez Follow-Up: Karen Pearce MD [Provider Admit Priv/Credential] - Ariela Rico MD [Physician No Access] - Comments: He was seen in the emergency department for inability to urinate. A Rodriguez was replaced and 800 mL of fluid came out. Please follow-up with Dr. Pearce for referral to urology. Return to the emergency department if you have any new or worsening symptoms or other concerns.
[2021-12-12 04:29] VITALS: BP 119/56
== END 2021-12-12 04:29 | disposition home or self-care (01) ==
LOC: EDUNIT# → ED 01:46
DX: R33.9 Retention of urine, unspecified (principal); I10 Essential (primary) hypertension; F17.200 Nicotine dependence, unspecified, uncomplicated
CPT/HCPCS: 51702; 81001; 81003; 87086; 99283

== ENCOUNTER 2022-03-05 12:42 | Emergency (ER) | payer OTHER ==
[2022-03-05 12:54] VITALS: BP 144/65
--- NOTE | 2022-03-05 13:47 | ED Physician Documentation ---
History of Present Illness - Stated complaint Stated Complaint: MALE - Chief complaint Chief Complaint: Abd Pain - Additonal information Additional information: He [id number] male presents emergency department requesting help with his Clement catheter. Pt is a good historian. Patient states that In early December he developed a urinary tract infection and subsequently developed obstruction which required a Clement catheter to be placed. Once he completed the antibiotics his Clement catheter was removed but after 12 hours he was unable to void thus it was replaced. He was told to follow-up with urology and remain on his Flomax. It has now been since December 19 that this Clement catheter has been in place. He reports that the catheter has stopped draining and he simply urinating around the Clement. He now has the urge to void. He is scheduled to see urology next week. He called his primary care provider requesting that she remove the Clement catheter but he was told to come to the ER. He denies abdominal pain. There have been no fevers. On presentation he has a Clement catheter exiting his penis that is in a large plastic shopping bag it does not appear to be draining there is a large amount of sediment within the tubing and it is grossly discolored. Review of Systems Constitutional: reports: Reviewed and negative Respiratory: reports: Reviewed and negative GI: reports: Reviewed and negative : reports: Other (Clement catheter in place) Skin: reports: Reviewed and negative Musculoskeletal: reports: Reviewed and negative PD PAST MEDICAL HISTORY - Past Medical History Cardiovascular: Hypertension Respiratory: COPD, Pneumonia Neuro: None Endocrine/Autoimmune: Other GI: None : Benign prostate hypertrophy HEENT: Glaucoma Psych: Depression, Panic attacks, Post traumatic stress disorder Musculoskeletal: None Derm: None - Past Surgical History Past Surgical History: Yes General: Appendectomy, Other Ortho: Other HEENT: Cataracts Derm: Skin cancer surgery - Present Medications Home Medications: Ambulatory Orders Medication Instructions Recorded Confirmed Efavirenz [Sustiva] 600 mg PO 0800 05/01/17 12/12/21 atenoloL [Atenolol] 50 mg PO 0800 05/01/17 12/12/21 Tamsulosin [Flomax] 0.4 mg PO DAILY #30 cap 12/01/21 12/12/21 Atorvastatin Calcium 10 mg PO DAILY 12/12/21 12/12/21 Bictegrav/Emtricit/Tenofov Ala 50 mg PO DAILY 12/12/21 12/12/21 [Biktarvy 50-200-25 mg Tablet] - Allergies Allergies/Adverse Reactions: Allergies Allergy/AdvReac Type Severity Reaction Status Date / Time No Known Drug Allergies Allergy Verified 03/05/22 12:50 - Social History Does the pt smoke?: Yes Smoking Status: Current every day smoker Does the pt drink ETOH?: No Does the pt have substance abuse?: No - Immunizations Immunizations are current?: Yes - POLST Patient has POLST: No POLST Status: Limited Interventions (No intubation) PD ED PE NORMAL - General General: Alert and oriented X 3, No acute distress - HEENT HEENT: PERRL - Neck Neck: Supple, no meningeal sign, No adenopathy - Cardiac Cardiac: RRR, No murmur - Respiratory Respiratory: No respiratory distress, Clear bilaterally - Abdomen Abdomen: Normal bowel sounds, Soft, Non tender - Male Male : Other (Clement catheter exiting the penis that no longer appears patent. The tubing is grossly discolored a large amount of dry sediment preventing further flow from it) - Derm Derm: Normal color, Warm and dry Results - Vitals Vitals: Vital Signs - 24 hr 03/05/22 12:50 Temperature 36.5 C Heart Rate 85 Respiratory 16 Rate Blood Pressure 144/65 H O2 Saturation 96 Oxygen O2 Source [With Activity] Nasal cannula O2 Source Room air PD Medical Decision Making - ED course Complexity details: considered differential, d/w patient ED course: 76-year-old male presents emergency department with an obstructed Clement catheter that he has had in place since December 19. This was placed secondary to obstruction due to a UTI. He did have a trial void once which he failed. The Clement itself is no longer functioning and has a dry sediment throughout the tubing and he is in fact urinating around the catheter therefore it was simply pulled. Patient was allowed to drink 500 mL of water and about 45 minutes later he voided 125 mils of urine. Post void bladder scan residual is less than 40 mL. At this time it appears the patient is voiding adequately and he will be discharged home. Given lack of abdominal tenderness fevers or flank pain we deferred a urinalysis today as it is likely to appear chronically infected/inflamed. He is scheduled to see urology in follow-up on the . He is advised to keep this appointment as well as continue the Flomax. He is discharged home in stable condition Departure - Departure Disposition: 01 Home, Self Care Clinical Impression: Clement catheter problem Qualifiers: Encounter type: initial encounter Qualified Code(s): T83.9XXA - Unspecified complication of genitourinary prosthetic device, implant and graft, initial encounter Condition: Stable Comments: Dre you were seen today in the emergency department because your Clement catheter stopped draining and you are urinating around it. We simply pulled the Clement catheter and allowed you to drink water. You were then able to void on your own and when we scan your bladder there was a residual volume of less than 400 mL. It is important that you continue to take the Flomax which was previously prescribed. Do not miss the follow-up appointment with urology scheduled on the . If you find that you are developing any lower abdominal discomfort, are unable to urinate, develop any fevers, flank pain or have vomiting please return immediately to the ER for second evaluation.
== END 2022-03-05 15:21 | disposition home or self-care (01) ==
LOC: ED 12:42
DX: T83.091A Other mechanical complication of indwelling urethral catheter, initial encounter (principal); F17.200 Nicotine dependence, unspecified, uncomplicated
CPT/HCPCS: 99281; 99283

== ENCOUNTER 2022-08-18 07:32 | Outpatient (CLI) | payer OTHER | END 2022-08-18 23:59 | disposition critical access hospital (66) | LOC: EMS 07:32 | DX: R33.9 Retention of urine, unspecified (principal); R10.813 Right lower quadrant abdominal tenderness | CPT/HCPCS: A0425; A0429 ==

== ENCOUNTER 2022-08-18 07:39 | Emergency (ER) | payer OTHER ==
--- NOTE | 2022-08-18 07:48 | ED Physician Documentation ---
History of Present Illness - Stated complaint Stated Complaint: UNABLE TO URINATE - Chief complaint Chief Complaint: General - History obtained from History obtained from: Patient, EMS - Additonal information Additional information: The patient comes to the emergency department chief complaint of urinary retention for the last 3 days. He states that he has a history of prostatic hypertrophy and that this is happened to him before. He states that he had drunk 1/5 of vodka because he was depressed because his niece had and that sometime while he was intoxicated, he began to retain urine. He states he has a lot of discomfort like he needs to urinate and that while he can force a very small amount out if he really pressurize us his abdomen, he has not been able to empty his bladder completely more freely since the relief otherwise. The patient denies fevers or chills. No nausea or vomiting. He denies any dysuria with a urine that he has gotten out and states it looks clear. The patient states that his urologist that he used to have in [place] moved away and that he is currently not seeing anyone from urology. No other complaints at this time. PD PAST MEDICAL HISTORY - Past Medical History Cardiovascular: Hypertension Respiratory: COPD, Pneumonia Neuro: None Endocrine/Autoimmune: Other GI: None : Benign prostate hypertrophy HEENT: Glaucoma Psych: Depression, Panic attacks, Post traumatic stress disorder Musculoskeletal: None Derm: None - Past Surgical History Past Surgical History: Yes General: Appendectomy, Other Ortho: Other HEENT: Cataracts Derm: Skin cancer surgery - Present Medications Home Medications: Ambulatory Orders Medication Instructions Recorded Confirmed Efavirenz [Sustiva] 600 mg PO 0800 05/01/17 12/12/21 atenoloL [Atenolol] 50 mg PO 0800 05/01/17 12/12/21 Tamsulosin [Flomax] 0.4 mg PO DAILY #30 cap 12/01/21 12/12/21 Atorvastatin Calcium 10 mg PO DAILY 12/12/21 12/12/21 Bictegrav/Emtricit/Tenofov Ala 50 mg PO DAILY 12/12/21 12/12/21 [Biktarvy 50-200-25 mg Tablet] - Allergies Allergies/Adverse Reactions: Allergies Allergy/AdvReac Type Severity Reaction Status Date / Time No Known Drug Allergies Allergy Verified 03/05/22 12:50 - Social History Does the pt smoke?: Yes Smoking Status: Current every day smoker Does the pt drink ETOH?: No Does the pt have substance abuse?: No - Immunizations Immunizations are current?: Yes - POLST Patient has POLST: No POLST Status: Limited Interventions (No intubation) PD ED PE NORMAL - Vitals Vital signs reviewed: Yes - General General: Alert and oriented X 3, No acute distress, Well developed/nourished - HEENT HEENT: Atraumatic, PERRL, EOMI, Moist mucous membranes - Neck Neck: Supple, no meningeal sign - Cardiac Cardiac: RRR, No murmur - Respiratory Respiratory: No respiratory distress, Clear bilaterally - Abdomen Abdomen: Soft, Other (Moderate discomfort with palpation of the lower half of the abdomen. Palpably distended bladder.) - Derm Derm: Normal color, Warm and dry, No rash - Extremities Extremities: No deformity - Neuro Neuro: Alert and oriented X 3 - Psych Psych: Normal mood, Normal affect Results - Vitals Vitals: Oxygen O2 Source [With Activity] Nasal cannula O2 Source Room air PD Medical Decision Making - ED course Complexity details: considered differential, d/w patient ED course: Clement catheter was placed in the ED, with nearly 1500 cc of UOP. Pt reported feeling much better. Departure - Departure Disposition: 01 Home, Self Care Clinical Impression: Urinary retention Condition: Stable Instructions: ED Retention Urinary Male Follow-Up: Honorio Kinsey MD [Provider Admit Priv/Credential] - Comments: You have put out about a liter and a half of urine from your bladder today. It is best to keep the catheter in for at least the next couple of days to allow your bladder to recover. After that, you should follow-up to have it taken out. We do have a new urologist, Dr. Kinsey, who is working out of our surgical clinic, and you could call to make an appointment with him for follow-up. If you are not able to get an appointment for more than a week, then you may return to the emergency department to have the catheter removed and take it from there. Please be sure you drink plenty of fluids to keep your bladder flushed and decrease the likelihood of infection while the catheter is in. If you develop fever and abdominal pain, you will need to return to the emergency department. Discharge Date/Time: 08/18/22 08:32
[2022-08-18 08:40] VITALS: BP 131/75
== END 2022-08-18 08:32 | disposition home or self-care (01) ==
LOC: EDBD → ED 07:39
DX: R33.9 Retention of urine, unspecified (principal); I10 Essential (primary) hypertension; J44.9 Chronic obstructive pulmonary disease, unspecified; F17.200 Nicotine dependence, unspecified, uncomplicated; Z79.899 Other long term (current) drug therapy
CPT/HCPCS: 51702; 51798; 99283

== ENCOUNTER 2022-09-30 09:42 | Day surgery (SDC) | payer MEDICARE, OTHER ==
[2022-09-30] MEDS ORDERED: ceFAZolin 2 GM VIAL ONE (09:52)
[2022-09-30] MEDS ORDERED: LACTATED RINGERS 1,000 ML IV ONE ×2 (10:24→13:31)
[2022-09-30] MEDS ORDERED: LIDOCAINE 2% URO-JET 5 ML SYRINGE UR ONE ×2 (11:37→12:59)
[2022-09-30] MEDS ORDERED: ATROPINE ABBOJECT 1 MG/10 ML SYRINGE IVP PRN (12:04)
[2022-09-30] MEDS ORDERED: NALOXONE 0.4 MG/ML VIAL IVP PRN (12:04)
[2022-09-30] MEDS ORDERED: ePHEDrine 50 MG/ML VIAL IVP PRN (12:04)
[2022-09-30] MEDS ORDERED: fentaNYL 100 MCG/2 ML VIAL IVP PRN (12:04)
[2022-09-30] MEDS ORDERED: ONDANSETRON 4 MG/2 ML VIAL IVP PRN ×2 (12:04→13:33)
[2022-09-30] MEDS ORDERED: HYDROmorphone 0.5 MG/0.5 ML SYRINGE IVP PRN (12:04)
--- NOTE | 2022-09-30 12:04 | ANESTHESIA ---
Pre-Anesthesia VS, & Labs - Diagnosis acute urinary retention - Procedure turp Vital Signs: Temp Pulse Resp BP Pulse Ox O2 Flow Rate 36.1 C L 67 18 158/84 H 97 09/30/22 09:50 09/30/22 09:50 09/30/22 09:50 09/30/22 09:50 09/30/22 09:50 Height: 5 ft 10 in Weight (kg): 65.3 kg Body Mass Index: 20.6 BMI Classification: Normal - NPO >8 hours - Lab Results Lab results reviewed: Yes Home Medications and Allergies Home Medications: Ambulatory Orders Didanosine 250 mg PO DAILY 09/24/22 Ibuprofen [Motrin] 600 mg PO Q6H PRN 09/24/22 Tenofovir Disoproxil Fumarate [Viread] 200 mg PO DAILY 09/24/22 Efavirenz [Sustiva] 600 mg PO 0805/01/17 atenoloL [Atenolol] 50 mg PO 0800 05/01/17 Bictegrav/Emtricit/Tenofov Ala [Biktarvy 50-200-25 mg Tablet] 50 mg PO DAILY 12/12/21 Didanosine 250 mg PO DAILY 09/24/22 Ibuprofen [Motrin] 600 mg PO Q6H PRN 09/24/22 Tenofovir Disoproxil Fumarate [Viread] 200 mg PO DAILY 09/24/22 Allergies/Adverse Reactions: Allergies Allergy/AdvReac Type Severity Reaction Status Date / Time No Known Drug Allergies Allergy Verified 03/05/22 12:50 Anes History & Medical History - Anesthetic History Anesthesia Complications: reports: No previous complications Family history of Anesthesia Complications: Denies Family history of Malignant Hyperthermia: Denies - Medical History Cardiovascular: reports: Hypertension Pulmonary: reports: COPD, Pneumonia Gastrointestinal: reports: Ulcers, Other Urinary: reports: Benign prostate hypertrophy Neuro: reports: None Musculoskeletal: reports: None Endocrine/Autoimmune: reports: Other Blood Disorders: reports: HIV/AIDS Skin: reports: None, Eczema Smoking Status: Current every day smoker - Surgical History General: reports: Appendectomy, Other Eyes Ears Nose Throat (EENT): reports: Cataracts Orthopedic: reports: Other Dermatologic: reports: Skin cancer surgery Exam General: Alert, Oriented x3, Cooperative Dental: Dentures full Upper, Dentures full Lower Mouth Openin Fingerbreadth Neck Mobility: Normal Mallampati classification: II Thyromental Distance: 4-6 cm Respiratory: Lungs clear Cardiovascular: Regular rate Plan Anesthesia Type: General Consent for Procedure(s) Verified and Reviewed: Yes Code Status: Attempt Resuscitation ASA classification: 3-Severe systemic disease Is this case an emergency?: No
[2022-09-30] MEDS ORDERED: fentaNYL 100 MCG/2 ML VIAL ONE (12:35)
[2022-09-30] MEDS ORDERED: LACTATED RINGERS 1,000 ML IV SCH ×2 (13:00→14:00)
[2022-09-30] MEDS ORDERED: oxyCODONE 5 MG TABLET PO PRN (13:33)
--- NOTE | 2022-09-30 13:42 | Discharge Plan ---
Discharge Plan Problem Reviewed?: Yes Disposition: Home, Self Care Prescriptions: Docusate Sodium 100Mg Capsule [Colace 100Mg Capsule] 100 mg PO DAILY #14 cap oxyCODONE [Roxicodone] 5 mg PO Q4H PRN #12 tablet PRN Reason: Pain Diet: Regular Activity Restrictions: no exercise 2 weeks Shower Restrictions: No (no bathing with catheter in place) Instruction Topics: Leg Bag Care Dc Additional Instructions or Follow Up instructions: Call for Fever >100.4 Call if no urine draining into bag and catheter feels clogged It is normal to see blood in or around the catheter, along with occasional spasms of urine around the catheter No Smoking: If you smoke, Please STOP! Call for help. Follow-up with: Karen Pearce MD [Primary Care Provider] - Honorio Kinsey MD [Provider Admit Priv/Credential] -
--- NOTE | 2022-09-30 13:47 | OPERATIVE REPORT ---
Operative Report - General Procedure Date: 09/30/22 Planned Procedure: Transurethral resection of prostate Pre-Op Diagnosis: Urinary retention Procedure Performed: Transurethral resection of the prostate Post Op Diagnosis: Urinary Retention - Procedure Note Primary Surgeon: Tio Anesthesia Technique: General LMA Pathology: Prostate chips Estimated Blood Loss (mL): 5 Drain/Tube Type: Other (22f 3way rodriguez) Indications: Urinary retention Findings: Very large median lobe as major obstructive element Complications: none - Other Other Information/Narrative: After informed consent was obtained the patient was brought to the OR and laid supine position at that point time the patient was anesthetized per anesthesia protocols. His rodriguez was removed. He was then placed in the lithotomy position.He was prepped and draped in the usual sterile fashion. He was then placed in the lithotomy position. A 26 Austrian was advanced easily into the urinary bladder. He was noted to have a large prostate with a majority of the obstruction coming from a large median lobe. Using a bipolar loop we then resected the median and lateral lobes of the prostate from the bladder neck to the verumontanum. Spot cautery was used for hemostasis. Prostate chips were evacuated out and sent for pathology. At the end of the case there was a wide open channel. The ureteral orifices and verumontanum were not injured. There was good hemostasis. A Uro-Jet was placed and then a 22 Austrian three-way Rodriguez catheter was placed and he was left on gentle CBI. This concluded the procedure patient was then reversed from anesthesia and brought to the PACU without further incident. All counts were correct.
[2022-09-30] MEDS ORDERED: HYDROmorphone 0.5 MG/0.5 ML SYRINGE ONE (13:55)
[2022-09-30] MEDS ORDERED: oxyCODONE 5 MG TABLET ONE (14:28)
[2022-09-30 14:43] VITALS: BP 125/63; O2SAT 93
--- NOTE | 2022-09-30 15:34 | ANESTHESIA POST OP EVALUATION ---
Anesthesia Post Eval - Post Anesthesia Eval Vitals: Last Vital Signs Temp 36.2 C L 09/30/22 14:36 Pulse 75 09/30/22 14:36 Resp 16 09/30/22 14:36 BP 125/63 09/30/22 14:36 Pulse Ox 93 09/30/22 14:36 O2 Flow Rate CV Function Including HR & BP: Stable Pain Control: Satisfactory Nausea & Vomiting: Negative Mental Status: Baseline Respiratory Status: Airway Patent Hydration Status: Satisfactory Anesthesia Complications: None
== END 2022-09-30 09:43 | disposition home or self-care (01) ==
LOC: SDS 09:42
PROVIDERS: ATTEND Urology
PROC: 0VB08ZZ Excision of Prostate, Via Natural or Artificial Opening Endoscopic (ICD-10-PCS; principal; 2022-09-30 13:00)
DX: N40.1 Benign prostatic hyperplasia with lower urinary tract symptoms (principal); R33.8 Other retention of urine; I10 Essential (primary) hypertension; J44.9 Chronic obstructive pulmonary disease, unspecified; Z21 Asymptomatic human immunodeficiency virus [HIV] infection status; Z79.899 Other long term (current) drug therapy
CPT/HCPCS: 52601; A9270; J1170; J7120